=== PATIENT | male | born 1950 | race American Indian/Alaskan Native ===

== ENCOUNTER 2016-05-30 23:42 | Emergency (ER) | payer MEDICARE, MEDICAID ==
[~2016-05-30 23:42] MED LIST: Azithromycin 250 MG Tab PO ONE
[2016-05-31] MEDS ORDERED: Albuterol/Ipratropium 3.0-0.5 MG/3 ML Neb Soln ONE (00:03)
[2016-05-31] MEDS ORDERED: Albuterol 0.083% 2.5 MG/3 ML Neb Soln NEB ONE (00:06)
[2016-05-31] MEDS ORDERED: Take Home: Azithromycin 250 MG, 2 Tab Pack PO ONE (00:15)
[2016-05-31] MEDS ORDERED: Oseltamivir 75 MG Cap PO ONE (00:15)
[2016-05-31] MEDS ORDERED: Acetaminophen/HYDROcodone 325-5 MG Tab PO PRN (00:20)
[2016-05-31] MEDS ORDERED: cefTRIAXone 1 GM Vial IM ONE (00:25)
[2016-05-31] MEDS ORDERED: Albuterol 8 GM Inhaler INH PRN (00:25)
[2016-05-31] MEDS ORDERED: Acetaminophen 325 MG Tab ONE ×2 (00:28)
[2016-05-31] MEDS ORDERED: Lidocaine 1% 20 ML MDV ONE (00:28)
--- NOTE | 2016-05-31 00:35 | EDM.PDOC ---
ED HISTORY OF PRESENT ILLNESS - General Chief Complaint: Respiratory Problem Stated Complaint: "Having cold symptoms" Time Seen by Provider: 05/31/16 00:30 Source of Information: Reports: Patient History Limitations: Reports: No limitations - History of Present Illness Symptom Onset Date: 05/30/16 Timing/Duration: Reports: Hour(s): Severity: moderate Location, General: Reports: chest Quality: Reports: Ache Improves with: Reports: None Associated Symptoms (General): Reports: cough, fever/chills, shortness of breath - Related Data Allergies/ADRs: Allergies Allergy/AdvReac Type Severity Reaction Status Date / Time pentazocine lactate Allergy Intermediate Itching Verified 02/01/16 12:10 [From Jignesh] gold shots Allergy Intermediate Blisters Uncoded 02/01/16 12:10 Home Meds: Home Meds DULoxetine HCl [Cymbalta] 60 mg PO DAILY 05/19/13 [History] Folic Acid [Folic Acid] 1 mg PO DAILY 05/19/13 [History] Insulin Aspart [NovoLOG] 24 units SQ TIDMEALS 05/19/13 [History] Insulin Glarg,Human.Rec.Analog [Lantus Solostar] 80 units SQ BEDTIME 05/19/13 [ History] Lisinopril [Lisinopril] 20 mg PO BID 05/19/13 [History] Methotrexate [Methotrexate] 1 ampule IM WEEKLY 05/19/13 [History] Omeprazole [Omeprazole] 20 mg PO DAILY 05/19/13 [History] Simvastatin [Simvastatin] 20 mg PO BEDTIME 05/19/13 [History] Aspirin [García Chewable Aspirin] 81 mg PO DAILY 10/16/13 [History] Pregabalin [Lyrica] 150 mg PO TID 02/06/15 [History] metFORMIN [Glucophage] 500 mg PO BIDMEALS 02/06/15 [History] Carvedilol 12.5 mg PO BID 08/04/15 [History] Clobetasol Propionate 1 applic TOP BID PRN 08/04/15 [History] Past Medical History - Past Health History Medical/Surgical History: Denies Medical/Surgical History Cardiovascular History: Reports: Afib, Cardiomyopathy, Heart Failure, High cholesterol, Hypertension, Pacemaker, Stents Respiratory History: Reports: COPD Musculoskeletal History: Reports: RA Endocrine/Metabolic History: Reports: Diabetes, type II Dermatologic History: Reports: Psoriasis - Infectious Disease History Infectious Disease History: Reports: MRSA - Past Surgical History Cardiovascular Surgical History: Reports: AICD, Vascular surgery, Other (see below) Other Cardiovascular Surgeries/Procedures: defribillator GI Surgical History: Reports: None Neurological Surgical History: Reports: Spinal fusion Musculoskeletal Surgical History: Reports: Amputation, Shoulder surgery Other Musculoskeletal Surgeries/Procedures:: broken ankle, amputated left BKA Social & Family History - Family History Family Medical History: Noncontributory - Tobacco Use Smoking Status *Q: Current Every Day Smoker Years of Tobacco use: 48 Packs/Tins Daily: 0.5 Used Tobacco, but Quit: Yes Month Tobacco Last Used: July Second Hand Smoke Exposure: No - Alcohol Use Days Per Week of Alcohol Use: 0 - Recreational Drug Use Recreational Drug Use: No - Living Situation & Occupation Living situation: Reports: , with family Occupation: disabled ED ROS GENERAL - Review of Systems Review Of Systems: See Below Constitutional: Reports: fever, chills, weakness, fatigue HEENT: Reports: No symptoms Respiratory: Reports: Shortness of Breath, Cough Cardiovascular: Reports: No symptoms Endocrine: Reports: no symptoms GI/Abdominal: Reports: No symptoms Musculoskeletal: Reports: no symptoms Skin: Reports: no symptoms Psychiatric: Reports: No symptoms Immunologic: Reports: no symptoms ED EXAM, GENERAL - Physical Exam Exam: See Below Exam Limited By: No limitations General Appearance: alert Ears: normal external exam, normal canal Nose: normal inspection Throat/Mouth: Normal inspection Neck: normal inspection, supple Respiratory/Chest: lungs clear, decreased breath sounds, crackles, wheezing Cardiovascular: normal peripheral pulses GI/Abdominal: normal bowel sounds Extremities: normal inspection, normal range of motion Psychiatric: normal affect, normal mood Skin Exam: Rash Course - Orders/Labs/Meds Orders: Active Orders 24 hr Category Date Time Status RT Aerosol Therapy [RC] ASDIRECTED Care 05/31/16 00:07 Active RT Post Treatment Assessment [RC] Click To Edit Care 05/31/16 00:26 Ordered RT Pre-Treatment Assessment [RC] Click To Edit Care 05/31/16 00:26 Ordered Chest 2V [CR] Stat Exams 05/31/16 00:00 Ordered Acetaminophen/HYDROcodone [[place] 325-5 MG] Med 05/31/16 00:20 Ordered 1 tab PO Q4H PRN Albuterol [Ventolin HFA] Med 05/31/16 00:25 Ordered 90 gm INH Q4H PRN Medication Orders Acetaminophen/Hydrocodone Bitart ([place] 325-5 Mg) 1 tab PO Q4H PRN PRN Reason: body aches Albuterol (Ventolin Hfa) 90 gm INH Q4H PRN PRN Reason: Dyspnea Meds: Medications Generic Name Dose Route Start Last Admin Trade Name Freq PRN Reason Stop Dose Admin Acetaminophen/Hydrocodone Bitart 1 tab 05/31/16 00:20 [place] 325-5 Mg PO Q4H PRN body aches Albuterol 90 gm 05/31/16 00:25 Ventolin Hfa INH Q4H PRN Dyspnea Discontinued Medications Generic Name Dose Route Start Last Admin Trade Name Freq PRN Reason Stop Dose Admin Albuterol 2.5 mg 05/31/16 00:06 05/31/16 00:13 Proventil Neb Soln NEB 05/31/16 00:07 Not Given ONETIME ONE Albuterol/Ipratropium Confirm 05/31/16 00:03 05/31/16 00:13 Duoneb 3.0-0.5 Mg/3 Ml Administered 05/31/16 00:04 3 ml Dose Administration 3 ml .ROUTE .STK-MED ONE Azithromycin 1 packet 05/31/16 00:15 Take Home: Azithromycin 250 Mg, 2 Tab Pack PO 05/31/16 00:16 ONETIME ONE Ceftriaxone Sodium 1 gm 05/31/16 00:25 Rocephin IM 05/31/16 00:26 ONETIME ONE Oseltamivir Phosphate 75 mg 05/31/16 00:15 Tamiflu PO 05/31/16 00:16 ONETIME ONE Departure - Departure Time of Disposition: 00:33 Disposition: Home, Self-Care 01 Condition: fair Clinical Impression: Influenza A, Influenza Forms: ED Department Discharge Additional Instructions: Follow up with your regular doctor. Take your medications as ordered. Drink plenty of fluids. Keep fever under control. - My Orders Last 24 Hours: My Active Orders 05/31/16 00:00 Chest 2V [CR] Stat 05/31/16 00:07 RT Aerosol Therapy [RC] ASDIRECTED 05/31/16 00:20 Acetaminophen/HYDROcodone [[place] 325-5 MG] 1 tab PO Q4H PRN 05/31/16 00:25 Albuterol [Ventolin HFA] 90 gm INH Q4H PRN 05/31/16 00:26 RT Post Treatment Assessment [RC] Click To Edit RT Pre-Treatment Assessment [RC] Click To Edit - Assessment/Plan Last 24 Hours: My Active Orders 05/31/16 00:00 Chest 2V [CR] Stat 05/31/16 00:07 RT Aerosol Therapy [RC] ASDIRECTED 05/31/16 00:20 Acetaminophen/HYDROcodone [[place] 325-5 MG] 1 tab PO Q4H PRN 05/31/16 00:25 Albuterol [Ventolin HFA] 90 gm INH Q4H PRN 05/31/16 00:26 RT Post Treatment Assessment [RC] Click To Edit RT Pre-Treatment Assessment [RC] Click To Edit
[2016-05-31] MEDS ORDERED: Albuterol 8 GM Inhaler INH ONE (00:37)
[2016-05-31] MEDS ORDERED: Lidocaine 1% 30 ML SDV INJECT ONE (00:37)
[2016-05-31 03:29] VITALS: BP 145/88
== END 2016-05-31 01:10 | disposition home or self-care (01) ==
LOC: CC.ED 23:42
DX: J10.1 Influenza due to other identified influenza virus with other respiratory manifestations (principal); I48.91 Unspecified atrial fibrillation; I11.0 Hypertensive heart disease with heart failure; I50.9 Heart failure, unspecified; E78.00 Pure hypercholesterolemia, unspecified; J44.9 Chronic obstructive pulmonary disease, unspecified; M06.9 Rheumatoid arthritis, unspecified; E11.9 Type 2 diabetes mellitus without complications; Z98.1 Arthrodesis status; F17.210 Nicotine dependence, cigarettes, uncomplicated; Z88.8 Allergy status to other drugs, medicaments and biological substances; Z79.4 Long term (current) use of insulin; Z79.82 Long term (current) use of aspirin; Z79.899 Other long term (current) drug therapy; Z89.512 Acquired absence of left leg below knee
CPT/HCPCS: 71020; 87804; 96372; 99283; A9270; J0696

== ENCOUNTER 2016-07-05 16:01 | Emergency (ER) | payer MEDICARE, MEDICAID ==
[2016-07-05 16:07] VITALS: BP 148/89
[2016-07-05 16:58] LABS: CHLORIDE,CL 101 mEq/L (98-106); SODIUM,NA 138 mEq/L (136-145)
--- NOTE | 2016-07-05 18:04 | EDM.PDOC ---
ED HISTORY OF PRESENT ILLNESS - General Chief Complaint: Cardiovascular Problem Stated Complaint: defibrillator fired during sleep Time Seen by Provider: 07/05/16 16:37 Source of Information: Reports: Patient History Limitations: Reports: No limitations - History of Present Illness INITIAL COMMENTS - FREE TEXT/NARRATIVE: Jef is a 65 yo male who presents to the ER with concerns of his pacemaker going off in the middle of the night last night. States it went off twice, once around 1:30 in the morning and isn't sure when the second one happened. States the second one wasn't as bad as the first one. Denies any symptoms prior to it going off or currently. States he feels his normal self. No chest pain or palpitations. States he scheduled an appointment with Dr. Valles his primary today but he was told to go to the ER. He states he has had his pacemaker for 7 years or so and never remembers it going off. States he has never had it checked out as he never went back to [facility] for follow up appointments. States he was told he would need a new one soon as the battery will wear out. Timing/Duration: Reports: Resolved prior to arrival Associated Symptoms (General): Reports: no other symptoms - Related Data Allergies/ADRs: Allergies Allergy/AdvReac Type Severity Reaction Status Date / Time pentazocine lactate Allergy Intermediate Itching Verified 07/05/16 16:07 [From Jignesh] gold shots Allergy Intermediate Blisters Uncoded 07/05/16 16:07 Home Meds: Home Meds DULoxetine HCl [Cymbalta] 60 mg PO DAILY 05/19/13 [History] Folic Acid [Folic Acid] 1 mg PO DAILY 05/19/13 [History] Insulin Glarg,Human.Rec.Analog [Lantus Solostar] 80 units SQ BEDTIME 05/19/13 [ History] Lisinopril [Lisinopril] 20 mg PO BID 05/19/13 [History] Methotrexate [Methotrexate] 5 mg IM WEEKLY 05/19/13 [History] Omeprazole [Omeprazole] 20 mg PO DAILY 05/19/13 [History] Simvastatin [Simvastatin] 20 mg PO BEDTIME 05/19/13 [History] Pregabalin [Lyrica] 150 mg PO TID 02/06/15 [History] metFORMIN [Glucophage] 500 mg PO BIDMEALS 02/06/15 [History] Carvedilol 12.5 mg PO BID 08/04/15 [History] Clobetasol Propionate 1 applic TOP BID PRN 08/04/15 [History] Insulin Lispro [Humalog Kwikpen U-100] 24 units SUBCUT TID 07/05/16 [History] Pantoprazole Sodium 40 mg PO DAILY 07/05/16 [History] Triamcinolone Acetonide [Triamcinolone Acetonide 0.1% Oint] 1 applic TOP DAILY PRN 07/05/16 [History] Past Medical History - Past Health History Medical/Surgical History: Denies Medical/Surgical History Cardiovascular History: Reports: Afib, Cardiomyopathy, Heart Failure, High cholesterol, Hypertension, Pacemaker, Stents Respiratory History: Reports: COPD Musculoskeletal History: Reports: RA Endocrine/Metabolic History: Reports: Diabetes, type II Dermatologic History: Reports: Psoriasis - Infectious Disease History Infectious Disease History: Reports: MRSA - Past Surgical History Cardiovascular Surgical History: Reports: AICD, Vascular surgery, Other (see below) Other Cardiovascular Surgeries/Procedures: defribillator GI Surgical History: Reports: None Neurological Surgical History: Reports: Spinal fusion Musculoskeletal Surgical History: Reports: Amputation, Shoulder surgery Other Musculoskeletal Surgeries/Procedures:: broken ankle, amputated left BKA Social & Family History - Family History Family Medical History: Noncontributory - Tobacco Use Smoking Status *Q: Current Every Day Smoker Years of Tobacco use: 45 Packs/Tins Daily: 0.5 Used Tobacco, but Quit: Yes Month Tobacco Last Used: July Second Hand Smoke Exposure: No - Alcohol Use Days Per Week of Alcohol Use: 0 - Recreational Drug Use Recreational Drug Use: No - Living Situation & Occupation Living situation: Reports: , with family Occupation: disabled ED ROS GENERAL - Review of Systems Review Of Systems: See Below Constitutional: Denies: fever, chills HEENT: Reports: No symptoms Respiratory: Denies: Shortness of Breath, Cough Cardiovascular: Denies: Chest pain, Lightheadedness, Palpitations Endocrine: Reports: no symptoms GI/Abdominal: Reports: No symptoms : Reports: no symptoms Musculoskeletal: Reports: no symptoms Skin: Reports: no symptoms Neurological: Reports: No Symptoms. Denies: Dizziness, Headache Psychiatric: Reports: No symptoms ED EXAM, GENERAL - Physical Exam Exam: See Below Exam Limited By: No limitations General Appearance: alert, no apparent distress Ears: normal external exam, normal canal, hearing grossly normal, normal TMs Nose: normal inspection, normal mucosa, no blood Throat/Mouth: Normal inspection, Normal lips, Normal gums, Normal voice, No airway compromise Head: atraumatic, normocephalic Neck: normal inspection, supple Respiratory/Chest: no respiratory distress, lungs clear, normal breath sounds, no accessory muscle use Cardiovascular: normal peripheral pulses, regular rate, rhythm, no murmur GI/Abdominal: normal bowel sounds, soft, non tender, no organomegaly, no distention, no mass Extremities: normal inspection, normal range of motion, no pedal edema, normal capillary refill Neurological: alert, oriented, normal cognition, no motor/sensory deficits Psychiatric: normal affect, normal mood Skin Exam: Warm, Intact, Normal color, No rash Course - Vital Signs Last Recorded V/S: Last Vital Signs Temp 98.4 F 07/05/16 16:03 Pulse 85 07/05/16 16:03 Resp 20 07/05/16 16:03 BP 148/89 H 07/05/16 16:03 Pulse Ox 98 07/05/16 16:03 - Orders/Labs/Meds Orders: Active Orders 24 hr Category Date Time Status Chest 2V [CR] Stat Exams 07/05/16 16:28 Taken Labs: Laboratory Tests 07/05/16 07/05/16 07/05/16 Range/Units 16:28 16:42 16:42 WBC 9.1 (5.0-10.0) 10^3/uL RBC 4.77 (4.50-6.00) 10^6/uL Hgb 14.6 (14.0-18.0) g/dL Hct 42.7 (40.0-54.0) % MCV 89.5 (82.0-94.0) fL MCH 30.6 (27.0-32.0) pg MCHC 34.2 (33.0-38.0) g/dL RDW Coeff of Jaciel 15.3 H (11.0-15.0) % Plt Count 309 (150-400) 10^3/uL Neut % (Auto) 64.2 (35-85) % Lymph % (Auto) 23.7 (10-55) % [place] % (Auto) 9.2 (0-16) % Eos % (Auto) 2.6 (0-5) % Baso % (Auto) 0.3 (0-3) % Neut # (Auto) 5.84 (1.80-7.00) 10^3/uL Lymph # (Auto) 2.16 (1.00-4.80) 10^3/uL [place] # (Auto) 0.84 H (0.00-0.80) 10^3/uL Eos # (Auto) 0.24 (0.00-0.45) 10^3/uL Baso # (Auto) 0.03 10^3/uL PT 10.4 (9.7-12.3) SEC INR 0.96 (0.92-1.18) APTT 25.2 (24.5-30.9) SEC D-Dimer, Quantitative 0.55 H (0.00-0.50) Sodium 138 (136-145) mEq/L Potassium 4.6 (3.5-5.0) mEq/L Chloride 101 (98-106) mEq/L Carbon Dioxide 28 (21-32) mmol/L BUN 15 (7-18) mg/dL Creatinine 0.9 (0.7-1.3) mg/dL Est Cr Clr Drug Dosing 93.71 mL/min Estimated GFR (MDRD) > 60 (>=60) mL/min Glucose 174 H D (75-99) mg/dL Calcium 9.4 (8.4-10.1) mg/dL Lactate Dehydrogenase 168 (100-190) U/L Creatine Kinase 120 (35-232) U/L Troponin I < 0.017 (0.00-0.06) ng/mL Departure - Departure Time of Disposition: 18:03 Disposition: Home, Self-Care 01 Clinical Impression: Normal cardiac exam, ICD (implantable cardioverter-defibrillator) discharge Forms: ED Department Discharge Additional Instructions: 1) See Dr. Valles tomorrow or for recheck. 2) If any symptoms prior or concerns, please let us know. - Problem List & Annotations (1) ICD (implantable cardioverter-defibrillator) discharge SNOMED Code(s): 237771827 Code(s): Z45.02 - ENCNTR FOR ADJUST AND MGMT OF AUTOMATIC IMPLNTBL CARD DEFIB Status: Resolved Current Visit: Yes (2) Normal cardiac exam SNOMED Code(s): 280028373 Code(s): OHO7986 - Status: Acute Current Visit: Yes - Problem List Review Problem List Initiated/Reviewed/Updated: Yes - My Orders Last 24 Hours: My Active Orders 07/05/16 16:28 Chest 2V [CR] Stat - Assessment/Plan Last 24 Hours: My Active Orders 07/05/16 16:28 Chest 2V [CR] Stat Plan: All laboratory work, EKG, and chest x-ray were stable. No sign or acute cause identified. Patient has been completely asymptomatic in ER and will discharge home today. Recommend patient follow up with primary for referral to cardiology to establish care, since he has not been compliant with follow up appointments.
== END 2016-07-05 18:13 | disposition home or self-care (01) ==
LOC: CC.ED 16:01
DX: Z45.02 Encounter for adjustment and management of automatic implantable cardiac defibrillator (principal); I48.91 Unspecified atrial fibrillation; I50.9 Heart failure, unspecified; E78.00 Pure hypercholesterolemia, unspecified; E11.9 Type 2 diabetes mellitus without complications; J44.9 Chronic obstructive pulmonary disease, unspecified; M06.9 Rheumatoid arthritis, unspecified; Z98.890 Other specified postprocedural states; Z79.899 Other long term (current) drug therapy; Z88.8 Allergy status to other drugs, medicaments and biological substances
CPT/HCPCS: 36415; 71020; 80048; 82550; 83615; 84484; 85025; 85379; 85610; 85730; 93005; 93010; 99284

== ENCOUNTER 2016-08-14 01:38 | Emergency (ER) | payer MEDICARE, MEDICAID ==
[2016-08-14 02:02] VITALS: BP 151/83
--- NOTE | 2016-08-14 02:11 | EDM.PDOC ---
ED HPI GENERAL MEDICAL PROBLEM - General Chief Complaint: Upper Extremity Injury/Pain Stated Complaint: L)shoulder/arm pain Time Seen by Provider: 08/14/16 01:51 Source of Information: Reports: Patient - History of Present Illness INITIAL COMMENTS - FREE TEXT/NARRATIVE: Patient states he felt fine to day was up and active walking around car show, when he returned home he experienced LUE discomfort in the left shoulder radiating down to the left elbow region.He states he was concerned it was his heart although denies chest pain or diaphoresis and therefore he took a NTG SL with resolution in the discomfort. He states he thinks maybe it was just his arthritis now but presents to ER for evaluation and work up. Onset: Today Onset Date: 08/13/16 Onset Time: 23:00 Duration: Hour(s):, Improving Location: Reports: Upper Extremity, Left Quality: Reports: Ache, Other (Radiation to the left elbow region.) Improves with: Reports: Medication, Rest Worsens with: Reports: Other (Total resolution at time of examination) Associated Symptoms: Reports: No Other Symptoms, Cough (Chronic smokers cough). 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) Left Arm Pain Score (Numeric/FACES): 9 - Related Data Allergies Allergy/AdvReac Type Severity Reaction Status Date / Time pentazocine lactate Allergy Intermediate Itching Verified 08/14/16 01:47 [From Jignesh] gold shots Allergy Intermediate Blisters Uncoded 08/14/16 01:47 Home Meds: Home Meds DULoxetine HCl [Cymbalta] 60 mg PO DAILY 05/19/13 [History] Folic Acid [Folic Acid] 1 mg PO DAILY 05/19/13 [History] Insulin Glarg,Human.Rec.Analog [Lantus Solostar] 80 units SQ BEDTIME 05/19/13 [ History] Lisinopril [Lisinopril] 20 mg PO BID 05/19/13 [History] Methotrexate [Methotrexate] 5 mg IM WEEKLY 05/19/13 [History] Omeprazole [Omeprazole] 20 mg PO DAILY 05/19/13 [History] Simvastatin [Simvastatin] 20 mg PO BEDTIME 05/19/13 [History] Pregabalin [Lyrica] 150 mg PO TID 02/06/15 [History] metFORMIN [Glucophage] 500 mg PO BIDMEALS 02/06/15 [History] Carvedilol 12.5 mg PO BID 08/04/15 [History] Clobetasol Propionate 1 applic TOP BID PRN 08/04/15 [History] Insulin Lispro [Humalog Kwikpen U-100] 24 units SUBCUT TID 07/05/16 [History] Pantoprazole Sodium 40 mg PO DAILY 07/05/16 [History] Triamcinolone Acetonide [Triamcinolone Acetonide 0.1% Oint] 1 applic TOP DAILY PRN 07/05/16 [History] Past Medical History - Past Health History Medical/Surgical History: Denies Medical/Surgical History HEENT History: Reports: None Cardiovascular History: Reports: Afib, Automatic Implantable Cardioverter Defibrillators, Cardiomyopathy, Heart Failure, High Cholesterol, Hypertension, Pacemaker, Stents Respiratory History: Reports: COPD Gastrointestinal History: Reports: None Genitourinary History: Reports: None Musculoskeletal History: Reports: Arthritis, Osteoarthritis, RA Neurological History: Reports: None Psychiatric History: Reports: None Endocrine/Metabolic History: Reports: Diabetes, Type II Hematologic History: Reports: None Immunologic History: Reports: Immunosuppression (Methotrexate for psoriasis- folic acid) Oncologic (Cancer) History: Reports: None Dermatologic History: Reports: Psoriasis - Infectious Disease History Infectious Disease History: Reports: None, MRSA - Past Surgical History Cardiovascular Surgical History: Reports: AICD, Vascular Surgery, Other (See Below) GI Surgical History: Reports: None Endocrine Surgical History: Reports: Other (See Below) Neurological Surgical History: Reports: Spinal Fusion Musculoskeletal Surgical History: Reports: Amputation, Shoulder Surgery Social & Family History - Family History Family Medical History: Noncontributory - Tobacco Use Smoking Status *Q: Never Smoker Years of Tobacco use: 45 Packs/Tins Daily: 0.5 Used Tobacco, but Quit: Yes Month Tobacco Last Used: July Second Hand Smoke Exposure: No - Tobacco Core Measures Tobacco Use/Smoking Within Last 30 Days: Yes Smoking Frequency Within Last 30 Days: Reports: Five or More Cigarettes Per Day Desires Tobacco Cessation Medication: Refuses FDA Approved Med - Caffeine Use Caffeine Use: Reports: Coffee - Alcohol Use Alcohol Use History: Yes Days Per Week of Alcohol Use: 0 - Recreational Drug Use Recreational Drug Use: No - Living Situation & Occupation Living situation: Reports: , with Family Occupation: Disabled Review of Systems - Review of Systems Review Of Systems: See Below Constitutional: Reports: No Symptoms Eyes: Reports: No Symptoms Ears: Reports: No Symptoms Nose: Reports: No Symptoms Mouth/Throat: Reports: No Symptoms Respiratory: Reports: No Symptoms Cardiovascular: Reports: No Symptoms. Denies: Chest Pain, Edema, Irregular Heart Rate, Lightheadedness, Palpitations, Syncope GI/Abdominal: Reports: No Symptoms Genitourinary: Reports: No Symptoms Musculoskeletal: Reports: Shoulder Pain, Arm Pain, Muscle Pain. Denies: Joint Swelling Skin: Reports: Lesions (Plaques from psoriasis) Neurological: Reports: No Symptoms Psychiatric: Reports: No Symptoms ED EXAM, GENERAL - Physical Exam Exam: See Below Exam Limited By: No Limitations General Appearance: Alert, WD/WN, No Apparent Distress Eye Exam: Bilateral Eye: EOMI, Normal Fundi, Normal Inspection, Other (No icterus) Ears: Normal External Exam, Normal Canal, Hearing Grossly Normal, Normal TMs Ear Exam: Bilateral Ear: Auricle Normal, Canal Normal, TM normal Nose: Normal Inspection, Normal Mucosa, No Blood Throat/Mouth: Normal Inspection, Normal Lips, Normal Oropharynx, Normal Voice, No Airway Compromise (Caries) Head: Atraumatic, Normocephalic Neck: Normal Inspection, Supple, Non-Tender, Full Range of Motion Respiratory/Chest: No Respiratory Distress, No Accessory Muscle Use, Chest Non- Tender, Decreased Breath Sounds, Wheezing. No: Accessory Muscle Use Cardiovascular: Normal Peripheral Pulses, Regular Rate, Rhythm, No Edema, No Gallop, No JVD, No Murmur, No Rub Peripheral Pulses: 2+: Carotid (L), Carotid (R), Radial (L), Radial (R), Dorsalis Pedis (L), Dorsalis Pedis (R) GI/Abdominal: Soft, Non-Tender (Male) Exam: Deferred Rectal (Males) Exam: Deferred Back Exam: Normal Inspection, Full Range of Motion Extremities: Normal Inspection, Normal Range of Motion, Normal Capillary Refill , Arm Pain. No: Joint Swelling, Increased Warmth (Resolved-Equal strength bilaterally-Neurovascular intact.), Pallor, Redness Neurological: Alert, Oriented, CN II-XII Intact, Normal Cognition, Normal Reflexes, No Motor/Sensory Deficits Psychiatric: Normal Affect, Normal Mood Skin Exam: Warm, Dry, Normal Color, Rash, Other (Plaques across abdomen secondary psoriasis) Lymphatic: No Adenopathy EKG INTERPRETATION EKG Date: 08/14/16 Rhythm: NSR P-wave: present QRS: LBBB ST-T: normal QT: normal Comparison: other: (EKG -NSR LBBB) Course - Vital Signs Last Recorded V/S: Last Vital Signs Temp 36.8 C 08/14/16 01:40 Pulse 90 08/14/16 01:58 Resp 20 08/14/16 01:58 BP 151/83 H 08/14/16 01:58 Pulse Ox 97 08/14/16 01:58 - Orders/Labs/Meds Orders: Active Orders 24 hr Category Date Time Status EKG Documentation Completion [RC] STAT Care 08/14/16 01:41 Active Chest 2V [CR] Stat Exams 08/14/16 01:41 Taken Labs: Laboratory Tests 08/14/16 08/14/16 08/14/16 Range/Units 01:41 01:41 01:55 WBC 11.3 H (5.0-10.0) 10^3/uL RBC 4.54 (4.50-6.00) 10^6/uL Hgb 14.2 (14.0-18.0) g/dL Hct 42.2 (40.0-54.0) % MCV 93.0 (82.0-94.0) fL MCH 31.3 (27.0-32.0) pg MCHC 33.6 (33.0-38.0) g/dL RDW Coeff of Jaciel 14.7 (11.0-15.0) % Plt Count 314 (150-400) 10^3/uL Neut % (Auto) 68.0 (35-85) % Lymph % (Auto) 20.8 (10-55) % [place] % (Auto) 8.4 (0-16) % Eos % (Auto) 2.4 (0-5) % Baso % (Auto) 0.4 (0-3) % Neut # (Auto) 7.71 H (1.80-7.00) 10^3/uL Lymph # (Auto) 2.36 (1.00-4.80) 10^3/uL [place] # (Auto) 0.95 H (0.00-0.80) 10^3/uL Eos # (Auto) 0.27 (0.00-0.45) 10^3/uL Baso # (Auto) 0.04 10^3/uL PT 10.4 (9.7-12.3) SEC INR 0.96 (0.92-1.18) APTT 25.0 (24.5-30.9) SEC Sodium 138 (136-145) mEq/L Potassium 4.4 (3.5-5.0) mEq/L Chloride 101 (98-106) mEq/L Carbon Dioxide 24 (21-32) mmol/L BUN 18 (7-18) mg/dL Creatinine 1.1 (0.7-1.3) mg/dL Est Cr Clr Drug Dosing TNP Estimated GFR (MDRD) > 60 (>=60) mL/min Glucose 266 H D (75-99) mg/dL Calcium 8.9 (8.4-10.1) mg/dL Lactate Dehydrogenase 235 H (100-190) U/L Creatine Kinase 118 (35-232) U/L Troponin I < 0.017 (0.00-0.06) ng/mL Departure - Departure Time of Disposition: 02:33 Disposition: Home, Self-Care 01 Condition: fair Clinical Impression: Shoulder pain, left, Normal cardiac exam, Arthritis - Discharge Information Forms: ED Department Discharge Additional Instructions: Discussed withpatient cardiac work up is negative for acute changes. Advised to rest at home. Utilize OTC Ibuprofen as needed if pain returns. Continue current treatment plan from PCP. Reassurance and 911 for transfer if chest pain, diaphoresis, pressure etc. Patient verbalizes understanding. Take Home sheets reviewed. MLP Sign Off - Signature Requirements MLP Sign Off: No - Problem List & Annotations (1) Shoulder pain, left SNOMED Code(s): 43286922, 80214582 Code(s): M25.512 - PAIN IN LEFT SHOULDER Status: Acute Current Visit: Yes (2) Arthritis SNOMED Code(s): 8415674, 901992607 Code(s): M19.90 - UNSPECIFIED OSTEOARTHRITIS, UNSPECIFIED SITE Status: Acute Current Visit: Yes - My Orders Last 24 Hours: My Active Orders 08/14/16 01:41 EKG Documentation Completion [RC] STAT Chest 2V [CR] Stat - Assessment/Plan Last 24 Hours: My Active Orders 08/14/16 01:41 EKG Documentation Completion [RC] STAT Chest 2V [CR] Stat Assessment:: Cardiac Work-Up Negative- Psoriatic Arthritis- Left Shoulder Pain-resolved NIDDM RA Cardiomyopathy Plan: Discussed withpatient cardiac work up is negative for acute changes. Advised to rest at home. Utilize OTC Ibuprofen as needed if pain returns. Continue current treatment plan from PCP. Reassurance and 911 for transfer if chest pain, diaphoresis, pressure etc. Patient verbalizes understanding. Take Home sheets reviewed.
[2016-08-14 02:23] LABS: CHLORIDE,CL 101 mEq/L (98-106); SODIUM,NA 138 mEq/L (136-145)
== END 2016-08-14 03:30 | disposition home or self-care (01) ==
LOC: CC.ED 01:38
DX: M25.512 Pain in left shoulder (principal); M19.90 Unspecified osteoarthritis, unspecified site; I48.91 Unspecified atrial fibrillation; I11.0 Hypertensive heart disease with heart failure; E78.00 Pure hypercholesterolemia, unspecified; J44.9 Chronic obstructive pulmonary disease, unspecified; E11.9 Type 2 diabetes mellitus without complications; L40.9 Psoriasis, unspecified; M06.9 Rheumatoid arthritis, unspecified; I50.9 Heart failure, unspecified; Z88.8 Allergy status to other drugs, medicaments and biological substances; Z79.899 Other long term (current) drug therapy; Z79.4 Long term (current) use of insulin; Z79.84 Long term (current) use of oral hypoglycemic drugs
CPT/HCPCS: 36415; 71020; 80048; 82550; 83615; 84484; 85025; 85610; 85730; 93005; 93010; 99284

== ENCOUNTER 2017-10-30 20:42 | Inpatient (IN) | payer MEDICARE, MEDICAID, OTHER ==
--- NOTE | 2017-10-30 20:55 | EDM.PDOC ---
ED HPI GENERAL MEDICAL PROBLEM - General Chief Complaint: Genitourinary Problem Stated Complaint: FREQUENT URINATION WITH PAIN Time Seen by Provider: 10/30/17 20:55 Source of Information: Reports: Patient - History of Present Illness INITIAL COMMENTS - FREE TEXT/NARRATIVE: eJf is a 67 year old male, with PMH significant for type II DM on half-way insulin, atrial fibrillation, CAD, rheumatoid arthritis, hypertension, hyperlipidemia, cardomyopathy, implantable AICD, pacemaker, who presents to the clinic with c/o frequent urination and dysuria. He reports starting yesterday he noticed he was going to the bathroom more frequently and only little amounts at a time. He reports he "can't control his bladder." He reports he "feels terrible." Reports he had a "high fever" last night, but did not check it. He reports fever and chills today. Does have some right flank pain, however he reports he has chronic back pain so difficult to tell. Denies any abdominal pain , N/V/D, chest pain, shortness of breath, hematuria. Denies any history of kidney stones or prostate issues. Onset Date: 10/29/17 Duration: Getting Worse Associated Symptoms: Reports: Fever/Chills, Loss of Appetite, Weakness. 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 Penis Pain Score (Numeric/FACES): 7 - Related Data Allergies Allergy/AdvReac Type Severity Reaction Status Date / Time pentazocine lactate Allergy Intermediate Itching Verified 10/30/17 21:13 [From Jignesh] gold shots Allergy Intermediate Blisters Uncoded 10/30/17 21:13 Home Meds: Home Meds DULoxetine HCl [Cymbalta] 60 mg PO DAILY 05/19/13 [History] Folic Acid 1 mg PO DAILY 05/19/13 [History] Insulin Glarg,Human.Rec.Analog [Lantus Solostar] 80 units SQ BEDTIME 05/19/13 [ History] Lisinopril 20 mg PO BID 05/19/13 [History] Methotrexate 5 mg IM WEEKLY 05/19/13 [History] Simvastatin 20 mg PO BEDTIME 05/19/13 [History] Pregabalin [Lyrica] 150 mg PO TID 02/06/15 [History] metFORMIN [Glucophage] 500 mg PO BIDMEALS 02/06/15 [History] Carvedilol 12.5 mg PO BID 08/04/15 [History] Clobetasol Propionate 1 applic TOP BID PRN 08/04/15 [History] Pantoprazole Sodium 40 mg PO DAILY 07/05/16 [History] Triamcinolone Acetonide [Triamcinolone Acetonide 0.1% Oint] 1 applic TOP DAILY PRN 07/05/16 [History] Insulin Aspart [NovoLOG] 28 units SUBCUT TIDMEALS 10/30/17 [History] Past Medical History - Past Health History Medical/Surgical History: Denies Medical/Surgical History HEENT History: Reports: Other (See Below) Other HEENT History: sore throat and headache Cardiovascular History: Reports: Afib, Automatic Implantable Cardioverter Defibrillators, Cardiomyopathy, Heart Failure, High Cholesterol, Hypertension, Pacemaker, Stents Respiratory History: Reports: COPD Gastrointestinal History: Reports: GERD Genitourinary History: Reports: None Musculoskeletal History: Reports: Amputation, Arthritis, Osteoarthritis, RA Other Musculoskeletal History: broken ankle Neurological History: Reports: None Psychiatric History: Reports: None Endocrine/Metabolic History: Reports: Diabetes, Type II Hematologic History: Reports: None Immunologic History: Reports: Immunosuppression Oncologic (Cancer) History: Reports: None Dermatologic History: Reports: Psoriasis - Infectious Disease History Infectious Disease History: Reports: MRSA - Past Surgical History Cardiovascular Surgical History: Reports: AICD, Vascular Surgery, Other (See Below) Other Cardiovascular Surgeries/Procedures: stent in left leg GI Surgical History: Reports: None Neurological Surgical History: Reports: Spinal Fusion Musculoskeletal Surgical History: Reports: Amputation, Shoulder Surgery Social & Family History - Family History Family Medical History: Noncontributory - Caffeine Use Caffeine Use: Reports: Coffee - Living Situation & Occupation Living situation: Reports: , with Family Occupation: Disabled ED ROS GENERAL - Review of Systems Review Of Systems: See Below Constitutional: Reports: Fever, Chills, Weakness, Fatigue, Decreased Appetite HEENT: Reports: Rhinitis Respiratory: Reports: Cough (baseline, chronic cough). Denies: Shortness of Breath, Pleuritic Chest Pain, Sputum Cardiovascular: Reports: Dyspnea on Exertion. Denies: Chest Pain, Edema, Lightheadedness, Syncope Endocrine: Reports: Fatigue GI/Abdominal: Reports: Decreased Appetite. Denies: Abdominal Pain, Black Stool , Bloody Stool, Constipation, Diarrhea, Nausea, Vomiting : Reports: Dysuria, Flank Pain, Frequency, Incontinence, Urgency. Denies: Hematuria Musculoskeletal: Reports: Neck Pain, Shoulder Pain, Arm Pain, Back Pain Skin: Reports: No Symptoms Neurological: Reports: Weakness. Denies: Confusion, Dizziness, Headache, Numbness, Tingling Psychiatric: Reports: No Symptoms Hematologic/Lymphatic: Reports: No Symptoms Immunologic: Reports: No Symptoms ED EXAM, RENAL/ - Physical Exam Exam: See Below Exam Limited By: No Limitations General Appearance: Alert, WD/WN, Mild Distress Eye Exam: Bilateral Eye: EOMI, PERRL Head: Atraumatic, Normocephalic Neck: Normal Inspection, Supple, Non-Tender, Full Range of Motion Respiratory/Chest: No Respiratory Distress, Lungs Clear, Normal Breath Sounds, No Accessory Muscle Use, Chest Non-Tender, Decreased Breath Sounds Cardiovascular: Normal Peripheral Pulses, Regular Rate, Rhythm, No Murmur, Tachycardia GI/Abdominal: Normal Bowel Sounds, Soft, Tender (RLQ & RUQ). No: Guarding, Rigid, Rebound Back Exam: Normal Inspection, Full Range of Motion, CVA Tenderness (R). No: CVA Tenderness (L) Extremities: Normal Inspection, Normal Range of Motion, Non-Tender, Normal Capillary Refill, No Pedal Edema Neurological: Alert, Oriented, CN II-XII Intact, Normal Cognition, Normal Gait, Normal Reflexes, No Motor/Sensory Deficits Psychiatric: Anxious Skin Exam: Warm, Dry, Intact, Normal Color, No Rash Lymphatic: No Adenopathy Course - Vital Signs Last Recorded V/S: Last Vital Signs Temp 96.4 F 10/31/17 07:28 Pulse 96 10/31/17 07:28 Resp 16 10/31/17 07:28 BP 124/77 10/31/17 07:28 Pulse Ox 97 10/31/17 07:28 - Orders/Labs/Meds Orders: Active Orders 24 hr Category Date Time Status Patient Status [ADT] Routine ADT 10/30/17 22:49 Active Cardiac Monitoring [RC] 0800,2000 Care 10/30/17 22:49 Active Oxygen Therapy [RC] .PRN Care 10/30/17 22:49 Active Up With Assistance [RC] .PRN Care 10/30/17 22:49 Active Vital Signs [RC] 0000,0400,0800,1200,1600,2000 Care 10/30/17 22:49 Active Consistent Carbohydrate Diet [DIET] Diet 10/30/17 Breakfast Active BASIC METABOLIC PANEL,BMP [CHEM] DAILY Lab 10/31/17 06:00 Ordered BASIC METABOLIC PANEL,BMP [CHEM] DAILY Lab 11/01/17 06:00 Ordered BASIC METABOLIC PANEL,BMP [CHEM] DAILY Lab 11/02/17 06:00 Ordered C-REACTIVE PROTEIN [CHEM] DAILY Lab 10/31/17 06:00 Ordered C-REACTIVE PROTEIN [CHEM] DAILY Lab 11/01/17 06:00 Ordered C-REACTIVE PROTEIN [CHEM] DAILY Lab 11/02/17 06:00 Ordered CBC WITH AUTO DIFF [HEME] DAILY Lab 10/31/17 06:00 Ordered CBC WITH AUTO DIFF [HEME] DAILY Lab 11/01/17 06:00 Ordered CBC WITH AUTO DIFF [HEME] DAILY Lab 11/02/17 06:00 Ordered CULTURE BLOOD [BC] Stat Lab 10/30/17 21:20 Received CULTURE BLOOD [BC] Stat Lab 10/30/17 21:30 Received Acetaminophen [Tylenol] Med 10/30/17 22:49 Active 650 mg PO Q4H PRN Enoxaparin [Lovenox] Med 10/30/17 22:00 Active 40 mg SUBCUT Q24H Ibuprofen [Motrin] Med 10/30/17 22:49 Active 600 mg PO Q6H PRN Magnesium Hydroxide [Milk of Magnesia] Med 10/30/17 22:49 Active 30 ml PO Q12H PRN Temazepam [Restoril] Med 10/30/17 22:49 Active 15 mg PO BEDTIME PRN Resuscitation Status Routine Resus Stat 10/30/17 21:47 Ordered Medication Orders Acetaminophen (Tylenol) 650 mg PO Q4H PRN PRN Reason: Pain (Mild 1-3)/fever Carvedilol (Coreg) 12.5 mg PO BID [facility] Ceftriaxone Sodium (Rocephin) 1 gm IVPUSH Q24H [facility] Last Admin: 10/30/17 23:30 Dose: 1 gm Duloxetine HCl (Cymbalta) 60 mg PO DAILY [facility] Enoxaparin Sodium (Lovenox) 40 mg SUBCUT Q24H [facility] Last Admin: 08/20/18 23:27 Dose: 40 mg Folic Acid (Folic Acid) 1 mg PO DAILY [facility] Sodium Chloride (Normal Saline) 1,000 mls @ 125 mls/hr IV ASDIRECTED JEZ Last Admin: 10/31/17 00:00 Dose: 125 mls/hr Ibuprofen (Motrin) 600 mg PO Q6H PRN PRN Reason: Pain (mild 1-3) Last Admin: 10/30/17 23:27 Dose: 600 mg Insulin Aspart (Novolog) 28 unit SUBCUT TIDMEALS [facility] Insulin Glargine (Lantus Solostar) 80 units SUBCUT BEDTIME JEZ Lisinopril (Prinivil) 20 mg PO BID JEZ Magnesium Hydroxide (Milk Of Magnesia) 30 ml PO Q12H PRN PRN Reason: Constipation Non-Formulary Medication (Clobetasol Propionate [Clobetasol Propionate]) 1 applic TOP BID PRN PRN Reason: SCALP Pantoprazole Sodium (Protonix) 40 mg PO DAILY JEZ Pregabalin (Lyrica) 150 mg PO TID JEZ Simvastatin (Zocor) 20 mg PO BEDTIME JEZ Temazepam (Restoril) 15 mg PO BEDTIME PRN PRN Reason: Sleep Triamcinolone Acetonide (Triamcinolone Acetonide 0.1% Oint) 0 gm TOP DAILY PRN PRN Reason: skin Labs: Laboratory Tests 10/30/17 10/30/17 10/30/17 Range/Units 20:50 21:00 21:00 WBC 29.3 H* (5.0-10.0) 10^3/uL RBC 4.84 (4.50-6.00) 10^6/uL Hgb 14.9 (14.0-18.0) g/dL Hct 43.7 (40.0-54.0) % MCV 90.3 (82.0-94.0) fL MCH 30.8 (27.0-32.0) pg MCHC 34.1 (33.0-38.0) g/dL RDW Coeff of Jaciel 15.2 H (11.0-15.0) % Plt Count 243 (150-400) 10^3/uL Add Manual Diff Yes Neutrophils % (Manual) 93 H (35-85) % Band Neutrophils % 1 (0-5) % Lymphocytes % (Manual) 4 L (21-55) % Monocytes % (Manual) 2 (2-12) % Absolute Neutrophils 27.54 H (1.80-7.00) 10^3/uL Lymphocytes # (Manual) 1.17 (1.00-4.80) 10^3/uL Monocytes # (Manual) 0.59 (0.00-0.80) 10^3/uL Sodium 130 L (136-145) mEq/L Potassium 3.9 (3.5-5.0) mEq/L Chloride 98 (98-106) mEq/L Carbon Dioxide 24 (21-32) mmol/L BUN 17 (7-18) mg/dL Creatinine 1.1 (0.7-1.3) mg/dL Est Cr Clr Drug Dosing 74.65 mL/min Estimated GFR (MDRD) > 60 (>=60) mL/min Glucose 251 H (75-99) mg/dL Calcium 8.9 (8.4-10.1) mg/dL C-Reactive Protein 23.1 H (0.2-0.8) mg/dL Urine Color Yellow (YELLOW) Urine Appearance Cloudy (CLEAR) Urine pH 7.0 (4.5-8.0) Ur Specific Roslyn 1.020 (1.003-1.020) Urine Protein 100 H (NEGATIVE) mg/dL Urine Glucose (UA) 500 H (NEGATIVE) mg/dL Urine Ketones Negative (NEGATIVE) mg/dL Urine Occult Blood Small H (NEGATIVE) Urine Nitrite Negative (NEGATIVE) Urine Bilirubin Negative (NEGATIVE) Urine Urobilinogen >=8.0 H (0.2-1.0) EU/dL Ur Leukocyte Esterase Small H (NEGATIVE) Urine RBC 0-5 (0-5) /HPF Urine WBC 40-50 H (0-5) /HPF Urine Bacteria Few H (NOT SEEN) /HPF Meds: Medications Generic Name Dose Route Start Last Admin Trade Name Freq PRN Reason Stop Dose Admin Acetaminophen 650 mg 10/30/17 22:49 Tylenol PO Q4H PRN Pain (Mild 1-3)/fever Carvedilol 12.5 mg 10/31/17 08:00 Coreg PO BID JEZ Ceftriaxone Sodium 1 gm 10/30/17 22:00 10/30/17 23:30 Rocephin IVPUSH 1 gm Q24H JEZ Administration Duloxetine HCl 60 mg 10/31/17 08:00 Cymbalta PO DAILY [facility] Enoxaparin Sodium 40 mg 10/30/17 22:00 10/30/17 23:27 Lovenox SUBCUT 40 mg Q24H JEZ Administration Folic Acid 1 mg 10/31/17 08:00 Folic Acid PO DAILY [facility] Sodium Chloride 1,000 mls @ 125 mls/hr 10/30/17 22:49 10/31/17 00:00 Normal Saline IV 125 mls/hr ASDIRECTED JEZ Administration Ibuprofen 600 mg 10/30/17 22:49 10/30/17 23:27 Motrin PO 600 mg Q6H PRN Administration Pain (mild 1-3) Insulin Aspart 28 unit 10/31/17 08:00 Novolog SUBCUT TIDMEALS [facility] Insulin Glargine 80 units 10/31/17 20:00 Lantus Solostar SUBCUT BEDTIME [facility] Lisinopril 20 mg 10/31/17 08:00 Prinivil PO BID [facility] Magnesium Hydroxide 30 ml 10/30/17 22:49 Milk Of Magnesia PO Q12H PRN Constipation Non-Formulary Medication 1 applic 10/30/17 22:49 Clobetasol Propionate [Clobetasol Propionate] TOP BID PRN SCALP Pantoprazole Sodium 40 mg 10/31/17 08:00 Protonix PO DAILY [facility] Pregabalin 150 mg 10/31/17 08:00 Lyrica PO TID [facility] Simvastatin 20 mg 10/31/17 20:00 Zocor PO BEDTIME [facility] Temazepam 15 mg 10/30/17 22:49 Restoril PO BEDTIME PRN Sleep Triamcinolone Acetonide 0 gm 10/30/17 22:49 Triamcinolone Acetonide 0.1% Oint TOP DAILY PRN skin Discontinued Medications Generic Name Dose Route Start Last Admin Trade Name Freq PRN Reason Stop Dose Admin Acetaminophen 650 mg 10/30/17 21:26 10/30/17 21:28 Tylenol PO 10/30/17 21:27 650 mg NOW ONE Administration Sodium Chloride 500 mls @ 999 mls/hr 10/30/17 22:49 10/30/17 23:26 Normal Saline IV 10/30/17 23:19 999 mls/hr ONETIME ONE Administration Iopamidol 100 ml 10/31/17 07:55 10/31/17 07:59 Isovue-300 (61%) IVPUSH 10/31/17 07:56 100 ml ONETIME ONE Administration Departure - Departure Time of Disposition: 21:40 Disposition: Admitted As Inpatient 67 Condition: Fair Clinical Impression: UTI, Urinary tract infectious disease, Leukocytosis - Discharge Information *PRESCRIPTION DRUG MONITORING PROGRAM REVIEWED*: Not Applicable *COPY OF PRESCRIPTION DRUG MONITORING REPORT IN PATIENT SEGUNDO: Not Applicable - Problem List & Annotations (1) UTI (urinary tract infection) SNOMED Code(s): 94164187 Code(s): N39.0 - URINARY TRACT INFECTION, SITE NOT SPECIFIED Status: Acute Current Visit: Yes (2) Leukocytosis SNOMED Code(s): 294367612, 858438893 Code(s): D72.829 - ELEVATED WHITE BLOOD CELL COUNT, UNSPECIFIED Status: Acute Current Visit: Yes Qualifiers: Leukocytosis type: unspecified Qualified Code(s): D72.829 - Elevated white blood cell count, unspecified - Problem List Review Problem List Initiated/Reviewed/Updated: Yes - My Orders Last 24 Hours: My Active Orders 10/30/17 21:20 CULTURE BLOOD [BC] Stat 10/30/17 21:30 CULTURE BLOOD [BC] Stat 10/30/17 21:47 Resuscitation Status Routine 10/30/17 22:00 Enoxaparin [Lovenox] 40 mg SUBCUT Q24H 10/30/17 22:49 Patient Status [ADT] Routine Cardiac Monitoring [RC] 0800,2000 Oxygen Therapy [RC] .PRN Up With Assistance [RC] .PRN Vital Signs [RC] 0000,0400,0800,1200,1600,2000 Acetaminophen [Tylenol] 650 mg PO Q4H PRN Ibuprofen [Motrin] 600 mg PO Q6H PRN Magnesium Hydroxide [Milk of Magnesia] 30 ml PO Q12H PRN Temazepam [Restoril] 15 mg PO BEDTIME PRN 10/30/17 Breakfast Consistent Carbohydrate Diet [DIET] 10/31/17 06:00 BASIC METABOLIC PANEL,BMP [CHEM] DAILY C-REACTIVE PROTEIN [CHEM] DAILY CBC WITH AUTO DIFF [HEME] DAILY 11/01/17 06:00 BASIC METABOLIC PANEL,BMP [CHEM] DAILY C-REACTIVE PROTEIN [CHEM] DAILY CBC WITH AUTO DIFF [HEME] DAILY 11/02/17 06:00 BASIC METABOLIC PANEL,BMP [CHEM] DAILY C-REACTIVE PROTEIN [CHEM] DAILY CBC WITH AUTO DIFF [HEME] DAILY - Assessment/Plan Admission H&P: Please use this note as an admission H&P Last 24 Hours: My Active Orders 10/30/17 21:20 CULTURE BLOOD [BC] Stat 10/30/17 21:30 CULTURE BLOOD [BC] Stat 10/30/17 21:47 Resuscitation Status Routine 10/30/17 22:00 Enoxaparin [Lovenox] 40 mg SUBCUT Q24H 10/30/17 22:49 Patient Status [ADT] Routine Cardiac Monitoring [RC] 0800,1999 Oxygen Therapy [RC] .PRN Up With Assistance [RC] .PRN Vital Signs [RC] 0000,0400,0800,1200,1600,2000 Acetaminophen [Tylenol] 650 mg PO Q4H PRN Ibuprofen [Motrin] 600 mg PO Q6H PRN Magnesium Hydroxide [Milk of Magnesia] 30 ml PO Q12H PRN Temazepam [Restoril] 15 mg PO BEDTIME PRN 10/30/17 Breakfast Consistent Carbohydrate Diet [DIET] 10/31/17 06:00 BASIC METABOLIC PANEL,BMP [CHEM] DAILY C-REACTIVE PROTEIN [CHEM] DAILY CBC WITH AUTO DIFF [HEME] DAILY 11/01/17 06:00 BASIC METABOLIC PANEL,BMP [CHEM] DAILY C-REACTIVE PROTEIN [CHEM] DAILY CBC WITH AUTO DIFF [HEME] DAILY 11/02/17 06:00 BASIC METABOLIC PANEL,BMP [CHEM] DAILY C-REACTIVE PROTEIN [CHEM] DAILY CBC WITH AUTO DIFF [HEME] DAILY Plan: Admit acute with telemetry to Dr. Mathew. Will get CT chest/abdomen/pelvis in am. Oral contrast prep starting this evening. Hold Metformin for 48 hours after contrast. Start IV Rocephin while awaiting culture reports Bolus 500 mL IV NS due to potential sepsis/tachycardia then NS @ 125 mL/hr. Monitor closely for s/s of fluid overload. Close monitoring of VS throughout night. Discussed lab results with patient and , who were agreeable to plan. Patient transferred to floor in satisfactory condition.
[2017-10-30 21:16] LABS: CHLORIDE,CL 98 mEq/L (98-106); SODIUM,NA 130 mEq/L (136-145)
[2017-10-30] MEDS ORDERED: Acetaminophen 325 MG Tab PO ONE (21:26)
[2017-10-30] MEDS ORDERED: Sodium Chloride 0.9% 500 ML IV ONE (22:49)
[2017-10-30] MEDS ORDERED: Acetaminophen 325 MG Tab PO PRN (22:49)
[2017-10-30] MEDS ORDERED: Triamcinolone Acetonide 0.1% Oint 15 GM Tube TOP PRN (22:49)
[2017-10-30] MEDS ORDERED: CLOBETASOL PROPIONATE TOP PRN (22:49)
[2017-10-30] MEDS ORDERED: Magnesium Hydroxide 400 MG/5 ML Susp 30 ML Cup PO PRN (22:49)
[2017-10-30] MEDS ORDERED: Temazepam 15 MG Cap PO PRN (22:49)
[2017-10-30] MEDS: Enoxaparin 40 MG/0.4 ML Syringe SUBCUT SCH (23:27)
[2017-10-30] MEDS: Ibuprofen 200 MG Tab PO PRN (23:27)
[2017-10-30] MEDS: cefTRIAXone 1 GM Vial IVPUSH SCH (23:30)
[2017-10-31] MEDS ORDERED: Iopamidol 612 MG/ML 100 ML Bottle IVPUSH ONE (07:55)
[2017-10-31] MEDS: DULoxetine 30 MG Cap PO SCH (08:07)
[2017-10-31] MEDS: Carvedilol 12.5 MG Tab PO SCH ×2 (08:07→19:44)
[2017-10-31] MEDS: Pregabalin 50 MG Cap PO SCH ×3 (08:08→19:44)
[2017-10-31] MEDS: Folic Acid 1 MG Tab PO SCH (08:08)
[2017-10-31] MEDS: Lisinopril 20 MG Tab PO SCH ×2 (08:08→19:45)
[2017-10-31] MEDS: Pantoprazole 40 MG Tab.CR PO SCH (08:09)
[2017-10-31] MEDS: Sodium Chloride 0.9% 1,000 ML IV SCH ×3 (08:09→16:52)
[2017-10-31] MEDS: Insulin Aspart 100 Units/ML 3 ML Pen SUBCUT SCH ×3 (08:42→17:33)
[2017-10-31 08:46] LABS: CHLORIDE,CL 101 mEq/L (98-106); SODIUM,NA 133 mEq/L (136-145)
[2017-10-31] MEDS: Simvastatin 20 MG Tab PO SCH (19:44)
[2017-10-31] MEDS ORDERED: Insulin Glargine,Human Rec. Analog 100 Units/ML 3 ML Pen SUBCUT SCH (20:00)
[2017-10-31] MEDS: Insulin Detemir 100 Units/ML 3 ML Pen SUBCUT SCH (20:06)
--- NOTE | 2017-10-31 20:30 | PCM.PN ---
- General Info Date of Service: 10/31/17 Functional Status: Reports: Pain Controlled, Tolerating Diet - Review of Systems General: Reports: Weakness. Denies: Fever, Fatigue, Malaise, Chills HEENT: Reports: No Symptoms Pulmonary: Denies: Shortness of Breath Cardiovascular: Denies: Chest Pain, Palpitations Gastrointestinal: Reports: Abdominal Pain. Denies: Nausea, Vomiting Genitourinary: Reports: Flank Pain Skin: Reports: No Symptoms Neurological: Reports: Weakness - Patient Data Vitals - Most Recent: Last Vital Signs Temp 99 F 10/31/17 19:50 Pulse 113 H 10/31/17 19:50 Resp 18 10/31/17 19:50 BP 119/64 10/31/17 19:50 Pulse Ox 95 10/31/17 19:50 Weight - Most Recent: 213 lb I&O - Last 24 Hours: Intake & Output 10/31/17 10/31/17 10/31/17 06:59 14:59 22:59 Intake Total 1000 1000 Balance 1000 1000 Lab Results Last 24 Hours: Laboratory Results - last 24 hr 10/30/17 10/30/17 10/30/17 Range/Units 20:50 21:00 21:00 WBC 29.3 H* (5.0-10.0) 10^3/uL RBC 4.84 (4.50-6.00) 10^6/uL Hgb 14.9 (14.0-18.0) g/dL Hct 43.7 (40.0-54.0) % MCV 90.3 (82.0-94.0) fL MCH 30.8 (27.0-32.0) pg MCHC 34.1 (33.0-38.0) g/dL RDW Coeff of Jaciel 15.2 H (11.0-15.0) % Plt Count 243 (150-400) 10^3/uL Add Manual Diff Yes Neutrophils % (Manual) 93 H (35-85) % Band Neutrophils % 1 (0-5) % Lymphocytes % (Manual) 4 L (21-55) % Monocytes % (Manual) 2 (2-12) % Absolute Neutrophils 27.54 H (1.80-7.00) 10^3/uL Lymphocytes # (Manual) 1.17 (1.00-4.80) 10^3/uL Monocytes # (Manual) 0.59 (0.00-0.80) 10^3/uL Sodium 130 L (136-145) mEq/L Potassium 3.9 (3.5-5.0) mEq/L Chloride 98 (98-106) mEq/L Carbon Dioxide 24 (21-32) mmol/L BUN 17 (7-18) mg/dL Creatinine 1.1 (0.7-1.3) mg/dL Est Cr Clr Drug Dosing 74.65 mL/min Estimated GFR (MDRD) > 60 (>=60) mL/min Glucose 251 H (75-99) mg/dL POC Glucose (75-105) mg/dl Calcium 8.9 (8.4-10.1) mg/dL C-Reactive Protein 23.1 H (0.2-0.8) mg/dL Urine Color Yellow (YELLOW) Urine Appearance Cloudy (CLEAR) Urine pH 7.0 (4.5-8.0) Ur Specific [place] 1.020 (1.003-1.020) Urine Protein 100 H (NEGATIVE) mg/dL Urine Glucose (UA) 500 H (NEGATIVE) mg/dL Urine Ketones Negative (NEGATIVE) mg/dL Urine Occult Blood Small H (NEGATIVE) Urine Nitrite Negative (NEGATIVE) Urine Bilirubin Negative (NEGATIVE) Urine Urobilinogen >=8.0 H (0.2-1.0) EU/dL Ur Leukocyte Esterase Small H (NEGATIVE) Urine RBC 0-5 (0-5) /HPF Urine WBC 40-50 H (0-5) /HPF Urine Bacteria Few H (NOT SEEN) /HPF 10/31/17 10/31/17 10/31/17 Range/Units 07:37 07:37 07:38 WBC 23.2 H* (5.0-10.0) 10^3/uL RBC 4.40 L (4.50-6.00) 10^6/uL Hgb 13.5 L (14.0-18.0) g/dL Hct 40.3 (40.0-54.0) % MCV 91.6 (82.0-94.0) fL MCH 30.7 (27.0-32.0) pg MCHC 33.5 (33.0-38.0) g/dL RDW Coeff of Jaciel 15.1 H (11.0-15.0) % Plt Count 220 (150-400) 10^3/uL Add Manual Diff Yes Neutrophils % (Manual) 91 H (35-85) % Band Neutrophils % (0-5) % Lymphocytes % (Manual) 5 L (21-55) % Monocytes % (Manual) 3 (2-12) % Absolute Neutrophils (1.80-7.00) 10^3/uL Lymphocytes # (Manual) (1.00-4.80) 10^3/uL Monocytes # (Manual) (0.00-0.80) 10^3/uL Sodium 133 L (136-145) mEq/L Potassium 3.6 (3.5-5.0) mEq/L Chloride 101 (98-106) mEq/L Carbon Dioxide 25 (21-32) mmol/L BUN 12 (7-18) mg/dL Creatinine 0.8 (0.7-1.3) mg/dL Est Cr Clr Drug Dosing 102.65 mL/min Estimated GFR (MDRD) > 60 (>=60) mL/min Glucose 235 H (75-99) mg/dL POC Glucose 241 H (75-105) mg/dl Calcium 8.3 L (8.4-10.1) mg/dL C-Reactive Protein 42.2 H (0.2-0.8) mg/dL Urine Color (YELLOW) Urine Appearance (CLEAR) Urine pH (4.5-8.0) Ur Specific [place] (1.003-1.020) Urine Protein (NEGATIVE) mg/dL Urine Glucose (UA) (NEGATIVE) mg/dL Urine Ketones (NEGATIVE) mg/dL Urine Occult Blood (NEGATIVE) Urine Nitrite (NEGATIVE) Urine Bilirubin (NEGATIVE) Urine Urobilinogen (0.2-1.0) EU/dL Ur Leukocyte Esterase (NEGATIVE) Urine RBC (0-5) /HPF Urine WBC (0-5) /HPF Urine Bacteria (NOT SEEN) /HPF 10/31/17 Range/Units 12:15 WBC (5.0-10.0) 10^3/uL RBC (4.50-6.00) 10^6/uL Hgb (14.0-18.0) g/dL Hct (40.0-54.0) % MCV (82.0-94.0) fL MCH (27.0-32.0) pg MCHC (33.0-38.0) g/dL RDW Coeff of Jaciel (11.0-15.0) % Plt Count (150-400) 10^3/uL Add Manual Diff Neutrophils % (Manual) (35-85) % Band Neutrophils % (0-5) % Lymphocytes % (Manual) (21-55) % Monocytes % (Manual) (2-12) % Absolute Neutrophils (1.80-7.00) 10^3/uL Lymphocytes # (Manual) (1.00-4.80) 10^3/uL Monocytes # (Manual) (0.00-0.80) 10^3/uL Sodium (136-145) mEq/L Potassium (3.5-5.0) mEq/L Chloride (98-106) mEq/L Carbon Dioxide (21-32) mmol/L BUN (7-18) mg/dL Creatinine (0.7-1.3) mg/dL Est Cr Clr Drug Dosing mL/min Estimated GFR (MDRD) (>=60) mL/min Glucose (75-99) mg/dL POC Glucose 345 H (75-105) mg/dl Calcium (8.4-10.1) mg/dL C-Reactive Protein (0.2-0.8) mg/dL Urine Color (YELLOW) Urine Appearance (CLEAR) Urine pH (4.5-8.0) Ur Specific [place] (1.003-1.020) Urine Protein (NEGATIVE) mg/dL Urine Glucose (UA) (NEGATIVE) mg/dL Urine Ketones (NEGATIVE) mg/dL Urine Occult Blood (NEGATIVE) Urine Nitrite (NEGATIVE) Urine Bilirubin (NEGATIVE) Urine Urobilinogen (0.2-1.0) EU/dL Ur Leukocyte Esterase (NEGATIVE) Urine RBC (0-5) /HPF Urine WBC (0-5) /HPF Urine Bacteria (NOT SEEN) /HPF Denys Results Last 24 Hours: Microbiology 10/30/17 21:30 Anaerobic Blood Culture - Preliminary Blood - Venous - Lab Draw Gram Negative Rods 10/30/17 22:00 Urine Culture - Preliminary Urine, Voided Gram Negative Rods Med Orders - Current: Current Medications Acetaminophen (Tylenol) 650 mg PO Q4H PRN PRN Reason: Pain (Mild 1-3)/fever Last Admin: 10/31/17 19:51 Dose: 650 mg Carvedilol (Coreg) 12.5 mg PO BID [facility] Last Admin: 10/31/17 19:44 Dose: 12.5 mg Ceftriaxone Sodium (Rocephin) 1 gm IVPUSH Q24H [facility] Last Admin: 10/30/17 23:30 Dose: 1 gm Duloxetine HCl (Cymbalta) 60 mg PO DAILY [facility] Last Admin: 10/31/17 08:07 Dose: 60 mg Enoxaparin Sodium (Lovenox) 40 mg SUBCUT Q24H [facility] Last Admin: 10/30/17 23:27 Dose: 40 mg Folic Acid (Folic Acid) 1 mg PO DAILY [facility] Last Admin: 10/31/17 08:08 Dose: 1 mg Sodium Chloride (Normal Saline) 1,000 mls @ 125 mls/hr IV ASDIRECTED [facility] Last Admin: 10/31/17 16:52 Dose: 125 mls/hr Ibuprofen (Motrin) 600 mg PO Q6H PRN PRN Reason: Pain (mild 1-3) Last Admin: 10/30/17 23:27 Dose: 600 mg Insulin Aspart (Novolog) 28 unit SUBCUT TIDMEALS [facility] Last Admin: 10/31/17 17:33 Dose: 28 units Insulin Detemir (Levemir) 40 unit SUBCUT BID [facility] Last Admin: 10/31/17 20:06 Dose: 40 units Lisinopril (Prinivil) 20 mg PO BID [facility] Last Admin: 10/31/17 19:45 Dose: 20 mg Magnesium Hydroxide (Milk Of Magnesia) 30 ml PO Q12H PRN PRN Reason: Constipation Pantoprazole Sodium (Protonix) 40 mg PO DAILY [facility] Last Admin: 10/31/17 08:09 Dose: 40 mg Pregabalin (Lyrica) 150 mg PO TID [facility] Last Admin: 10/31/17 19:44 Dose: 150 mg Simvastatin (Zocor) 20 mg PO BEDTIME [facility] Last Admin: 10/31/17 19:44 Dose: 20 mg Temazepam (Restoril) 15 mg PO BEDTIME PRN PRN Reason: Sleep Triamcinolone Acetonide (Triamcinolone Acetonide 0.1% Oint) 0 gm TOP DAILY PRN PRN Reason: skin Discontinued Medications Acetaminophen (Tylenol) 650 mg PO NOW ONE Stop: 10/30/17 21:27 Last Admin: 10/30/17 21:28 Dose: 650 mg Sodium Chloride (Normal Saline) 500 mls @ 999 mls/hr IV ONETIME ONE Stop: 10/30/17 23:19 Last Admin: 10/30/17 23:26 Dose: 999 mls/hr Insulin Glargine (Lantus Solostar) 80 units SUBCUT BEDTIME JEZ Iopamidol (Isovue-300 (61%)) 100 ml IVPUSH ONETIME ONE Stop: 10/31/17 07:56 Last Admin: 10/31/17 07:59 Dose: 100 ml Non-Formulary Medication (Clobetasol Propionate [Clobetasol Propionate]) 1 applic TOP BID PRN PRN Reason: SCALP - Exam General: Alert, Oriented HEENT: Mucous Membr. Moist/[place] Neck: Supple Lungs: Clear to Auscultation, Normal Respiratory Effort Cardiovascular: Regular Rate, Regular Rhythm GI/Abdominal Exam: Normal Bowel Sounds, Soft, Tender, Other (right flank pain) Extremities: Other (amputation left leg BKA) Skin: Warm, Dry Neurological: No New Focal Deficit - Problem List & Annotations (1) UTI (urinary tract infection) SNOMED Code(s): 11222370 Code(s): N39.0 - URINARY TRACT INFECTION, SITE NOT SPECIFIED Status: Acute Priority: High Current Visit: Yes - Problem List Review Problem List Initiated/Reviewed/Updated: Yes - Assessment Assessment:: UTI - Plan Plan:: Patient states is feeling better today. Less nausea. Admits to mild abdominal and flank pain today. Appetite has improved. No fevers. Lung sounds clear. Tender to the right lower and upper quadrants. WBC is down to 23 today, CRP however increased to 42.2. Initial urine culture shows gram negative rods, probable proteus. Blood culture also positive for gram negative rods. Await final culture reports tomorrow. Will continue with IV Rocephin and await full sensitivities. IV fluids. Reevaluate labs in am.
[2017-10-31] MEDS: Enoxaparin 40 MG/0.4 ML Syringe SUBCUT SCH (21:52)
[2017-10-31] MEDS: cefTRIAXone 1 GM Vial IVPUSH SCH (21:52)
[2017-11-01] MEDS: Sodium Chloride 0.9% 1,000 ML IV SCH ×3 (01:23→17:38)
[2017-11-01 07:38] LABS: CHLORIDE,CL 102 mEq/L (98-106); SODIUM,NA 134 mEq/L (136-145)
[2017-11-01] MEDS: Pregabalin 50 MG Cap PO SCH ×3 (07:42→19:56)
[2017-11-01] MEDS: Pantoprazole 40 MG Tab.CR PO SCH (07:42)
[2017-11-01] MEDS: Folic Acid 1 MG Tab PO SCH (07:43)
[2017-11-01] MEDS: DULoxetine 30 MG Cap PO SCH (07:43)
[2017-11-01] MEDS: Insulin Detemir 100 Units/ML 3 ML Pen SUBCUT SCH ×2 (07:57→19:58)
[2017-11-01] MEDS: Insulin Aspart 100 Units/ML 3 ML Pen SUBCUT SCH ×5 (07:57→17:35)
[2017-11-01] MEDS: Lisinopril 20 MG Tab PO SCH (09:12)
[2017-11-01] MEDS: Carvedilol 12.5 MG Tab PO SCH ×2 (09:22→19:56)
[2017-11-01] MEDS ORDERED: Polyvinyl Alcohol 1.4% Ophth Soln 15 ML Bottle EYEBOTH PRN (09:44)
[2017-11-01] MEDS: Ibuprofen 200 MG Tab PO PRN (14:52)
--- NOTE | 2017-11-01 16:23 | PCM.PN ---
- General Info Date of Service: 11/01/17 Admission Dx/Problem (Free Text): UTI with sepsis Functional Status: Reports: Pain Controlled, Tolerating Diet. Denies: Ambulating - Review of Systems General: Reports: Weakness, Fatigue. Denies: Fever HEENT: Reports: No Symptoms Pulmonary: Denies: Shortness of Breath, Cough Cardiovascular: Denies: Chest Pain, Edema, Lightheadedness Gastrointestinal: Denies: Abdominal Pain, Nausea, Vomiting Genitourinary: Reports: No Symptoms Musculoskeletal: Reports: No Symptoms Skin: Reports: No Symptoms Neurological: Reports: No Symptoms - Patient Data Vitals - Most Recent: Last Vital Signs Temp 97.3 F 11/01/17 12:00 Pulse 80 11/01/17 12:00 Resp 18 11/01/17 12:00 BP 108/53 L 11/01/17 12:00 Pulse Ox 95 11/01/17 12:00 Weight - Most Recent: 213 lb I&O - Last 24 Hours: Intake & Output 11/01/17 11/01/17 11/01/17 06:59 14:59 22:59 Intake Total 1000 1000 Balance 1000 1000 Lab Results Last 24 Hours: Laboratory Results - last 24 hr 10/31/17 10/31/17 11/01/17 Range/Units 17:31 20:05 07:00 WBC (5.0-10.0) 10^3/uL RBC (4.50-6.00) 10^6/uL Hgb (14.0-18.0) g/dL Hct (40.0-54.0) % MCV (82.0-94.0) fL MCH (27.0-32.0) pg MCHC (33.0-38.0) g/dL RDW Coeff of Jaciel (11.0-15.0) % Plt Count (150-400) 10^3/uL Neut % (Auto) (35-85) % Lymph % (Auto) (10-55) % [place] % (Auto) (0-16) % Eos % (Auto) (0-5) % Baso % (Auto) (0-3) % Neut # (Auto) (1.80-7.00) 10^3/uL Lymph # (Auto) (1.00-4.80) 10^3/uL [place] # (Auto) (0.00-0.80) 10^3/uL Eos # (Auto) (0.00-0.45) 10^3/uL Baso # (Auto) 10^3/uL Sodium (136-145) mEq/L Potassium (3.5-5.0) mEq/L Chloride (98-106) mEq/L Carbon Dioxide (21-32) mmol/L BUN (7-18) mg/dL Creatinine (0.7-1.3) mg/dL Est Cr Clr Drug Dosing mL/min Estimated GFR (MDRD) (>=60) mL/min Glucose (75-99) mg/dL POC Glucose 262 H 316 H (75-105) mg/dl Calcium (8.4-10.1) mg/dL Troponin I 0.289 H (0.00-0.06) ng/mL C-Reactive Protein (0.2-0.8) mg/dL 11/01/17 11/01/17 11/01/17 Range/Units 07:10 07:10 07:34 WBC 17.6 H (5.0-10.0) 10^3/uL RBC 4.00 L (4.50-6.00) 10^6/uL Hgb 12.2 L (14.0-18.0) g/dL Hct 36.4 L (40.0-54.0) % MCV 91.0 (82.0-94.0) fL MCH 30.5 (27.0-32.0) pg MCHC 33.5 (33.0-38.0) g/dL RDW Coeff of Jaciel 14.8 (11.0-15.0) % Plt Count 204 (150-400) 10^3/uL Neut % (Auto) 84.4 (35-85) % Lymph % (Auto) 7.8 L (10-55) % [place] % (Auto) 7.4 (0-16) % Eos % (Auto) 0.3 (0-5) % Baso % (Auto) 0.1 (0-3) % Neut # (Auto) 14.86 H (1.80-7.00) 10^3/uL Lymph # (Auto) 1.37 (1.00-4.80) 10^3/uL [place] # (Auto) 1.30 H (0.00-0.80) 10^3/uL Eos # (Auto) 0.05 (0.00-0.45) 10^3/uL Baso # (Auto) 0.02 10^3/uL Sodium 134 L (136-145) mEq/L Potassium 3.6 (3.5-5.0) mEq/L Chloride 102 (98-106) mEq/L Carbon Dioxide 26 (21-32) mmol/L BUN 9 (7-18) mg/dL Creatinine 0.8 (0.7-1.3) mg/dL Est Cr Clr Drug Dosing 102.65 mL/min Estimated GFR (MDRD) > 60 (>=60) mL/min Glucose 237 H (75-99) mg/dL POC Glucose 217 H (75-105) mg/dl Calcium 7.9 L (8.4-10.1) mg/dL Troponin I (0.00-0.06) ng/mL C-Reactive Protein 19.6 H (0.2-0.8) mg/dL Denys Results Last 24 Hours: Microbiology 10/30/17 21:30 Aerobic Blood Culture - Preliminary Blood - Venous - Lab Draw NO GROWTH AFTER 1 DAY Anaerobic Blood Culture - Final Proteus Mirabilis. 10/30/17 22:00 Urine Culture - Final Urine, Voided Proteus Mirabilis 10/30/17 21:20 Aerobic Blood Culture - Preliminary Blood - Venous NO GROWTH AFTER 1 DAY Anaerobic Blood Culture - Preliminary NO GROWTH AFTER 1 DAY Med Orders - Current: Current Medications Acetaminophen (Tylenol) 650 mg PO Q4H PRN PRN Reason: Pain (Mild 1-3)/fever Last Admin: 10/31/17 19:51 Dose: 650 mg Artificial Tears (Liquitears 1.4% Ophth Soln) 1 ml EYEBOTH TID PRN PRN Reason: Dry Eyes Carvedilol (Coreg) 12.5 mg PO BID [facility] Last Admin: 11/01/17 09:22 Dose: 12.5 mg Ceftriaxone Sodium (Rocephin) 1 gm IVPUSH Q24H [facility] Last Admin: 10/31/17 21:52 Dose: 1 gm Duloxetine HCl (Cymbalta) 60 mg PO DAILY [facility] Last Admin: 11/01/17 07:43 Dose: 60 mg Enoxaparin Sodium (Lovenox) 40 mg SUBCUT Q24H [facility] Last Admin: 10/31/17 21:52 Dose: 40 mg Folic Acid (Folic Acid) 1 mg PO DAILY [facility] Last Admin: 11/01/17 07:43 Dose: 1 mg Sodium Chloride (Normal Saline) 1,000 mls @ 125 mls/hr IV ASDIRECTED [facility] Last Admin: 11/01/17 09:35 Dose: 125 mls/hr Ibuprofen (Motrin) 600 mg PO Q6H PRN PRN Reason: Pain (mild 1-3) Last Admin: 11/01/17 14:52 Dose: 600 mg Insulin Aspart (Novolog) 28 unit SUBCUT TIDMEALS [facility] Last Admin: 11/01/17 12:16 Dose: 28 units Insulin Aspart (Novolog) 0 unit SUBCUT TIDMEALS [facility]; Protocol Last Admin: 11/01/17 12:18 Dose: 6 units Insulin Detemir (Levemir) 40 unit SUBCUT BID [facility] Last Admin: 11/01/17 07:57 Dose: 40 units Lisinopril (Prinivil) 20 mg PO BID [facility] Last Admin: 11/01/17 09:12 Dose: Not Given Magnesium Hydroxide (Milk Of Magnesia) 30 ml PO Q12H PRN PRN Reason: Constipation Pantoprazole Sodium (Protonix) 40 mg PO DAILY [facility] Last Admin: 11/01/17 07:42 Dose: 40 mg Pregabalin (Lyrica) 150 mg PO TID [facility] Last Admin: 11/01/17 14:51 Dose: 150 mg Simvastatin (Zocor) 20 mg PO BEDTIME [facility] Last Admin: 10/31/17 19:44 Dose: 20 mg Temazepam (Restoril) 15 mg PO BEDTIME PRN PRN Reason: Sleep Triamcinolone Acetonide (Triamcinolone Acetonide 0.1% Oint) 0 gm TOP DAILY PRN PRN Reason: skin Discontinued Medications Acetaminophen (Tylenol) 650 mg PO NOW ONE Stop: 10/30/17 21:27 Last Admin: 10/30/17 21:28 Dose: 650 mg Sodium Chloride (Normal Saline) 500 mls @ 999 mls/hr IV ONETIME ONE Stop: 10/30/17 23:19 Last Admin: 10/30/17 23:26 Dose: 999 mls/hr Insulin Glargine (Lantus Solostar) 80 units SUBCUT BEDTIME [facility] Iopamidol (Isovue-300 (61%)) 100 ml IVPUSH ONETIME ONE Stop: 10/31/17 07:56 Last Admin: 10/31/17 07:59 Dose: 100 ml Non-Formulary Medication (Clobetasol Propionate [Clobetasol Propionate]) 1 applic TOP BID PRN PRN Reason: SCALP - Exam General: Oriented, Lethargic HEENT: Mucous Membr. Moist/[place] Neck: Supple Lungs: Clear to Auscultation, Normal Respiratory Effort Cardiovascular: Regular Rate, Regular Rhythm GI/Abdominal Exam: Normal Bowel Sounds, Soft, Non-Tender Extremities: Normal Inspection, No Pedal Edema, Other (venous stasis changes to right lower extremity) Skin: Warm, Dry Neurological: No New Focal Deficit - Problem List & Annotations (1) UTI (urinary tract infection) SNOMED Code(s): 44009026 Code(s): N39.0 - URINARY TRACT INFECTION, SITE NOT SPECIFIED Status: Acute Priority: High Current Visit: Yes - Problem List Review Problem List Initiated/Reviewed/Updated: Yes - My Orders Last 24 Hours: My Active Orders 11/01/17 09:44 Polyvinyl Alcohol [LiquiTears 1.4% Ophth Soln] 1 ml EYEBOTH TID PRN 11/01/17 12:00 Insulin Aspart [NovoLOG] See Protocol SUBCUT TIDMEALS 11/02/17 05:11 TROPONIN I [CHEM] AM - Assessment Assessment:: UTI - Plan Plan:: Patient states is feeling better today. Less nausea. Admits to mild abdominal and flank pain today. Appetite has improved. No fevers. Lung sounds clear. Tender to the right lower and upper quadrants. WBC is down to 23 today, CRP however increased to 42.2. Initial urine culture shows gram negative rods, probable proteus. Blood culture also positive for gram negative rods. Await final culture reports tomorrow. Will continue with IV Rocephin and await full sensitivities. IV fluids. Reevaluate labs in am. 11-01-2017 Patient admits to being more tired this am. He states he did not sleep well last night, awake every hour or so. Overall, feels better otherwise. Less back and abdominal pain. Blood pressure is low this am 94/49. Afebrile. Has had a good appetite. Labs show WBC of 17.6, improved from 29. CRP down to 19.6. Blood cultures and urine culture both show proteus, covered with Rocephin. Telemetry through the night does show mild ST changes. Will hold his Lisinopril this am. Continue Coreg. Will obtain EKG and troponin this am. Continue to follow.
[2017-11-01] MEDS: Simvastatin 20 MG Tab PO SCH (19:56)
[2017-11-01] MEDS: Enoxaparin 40 MG/0.4 ML Syringe SUBCUT SCH (21:50)
[2017-11-01] MEDS: cefTRIAXone 1 GM Vial IVPUSH SCH (21:50)
[2017-11-02] MEDS: Sodium Chloride 0.9% 1,000 ML IV SCH (01:16)
[2017-11-02] MEDS: Ibuprofen 200 MG Tab PO PRN ×2 (03:20→08:03)
[2017-11-02 07:33] VITALS: BP 114/62
[2017-11-02] MEDS: DULoxetine 30 MG Cap PO SCH (07:53)
[2017-11-02] MEDS: Pantoprazole 40 MG Tab.CR PO SCH (07:53)
[2017-11-02] MEDS: Carvedilol 12.5 MG Tab PO SCH (07:53)
[2017-11-02] MEDS: Pregabalin 50 MG Cap PO SCH (07:53)
[2017-11-02 07:54] LABS: CHLORIDE,CL 105 mEq/L (98-106); SODIUM,NA 136 mEq/L (136-145)
[2017-11-02] MEDS: Folic Acid 1 MG Tab PO SCH (07:54)
[2017-11-02] MEDS: Insulin Detemir 100 Units/ML 3 ML Pen SUBCUT SCH (08:04)
[2017-11-02] MEDS: Insulin Aspart 100 Units/ML 3 ML Pen SUBCUT SCH ×2 (08:05)
== END 2017-11-02 11:40 | disposition home or self-care (01) | DRG 872 ==
LOC: CC.ED 20:42 → CC.MS 21:47 → CC.ED 21:50 → CC.MS 21:51 → INTOOBSV 21:51 → OBSVTOIN 21:51 → UNDOADMOB 21:51
PROVIDERS: ADMIT Nurse Practitioner Family; ATTEND Family Medicine
DX: A41.89 Other specified sepsis (principal); N39.0 Urinary tract infection, site not specified; I42.9 Cardiomyopathy, unspecified; E11.9 Type 2 diabetes mellitus without complications; I48.91 Unspecified atrial fibrillation; I25.10 Atherosclerotic heart disease of native coronary artery without angina pectoris; M06.9 Rheumatoid arthritis, unspecified; E78.5 Hyperlipidemia, unspecified; G89.29 Other chronic pain; M54.9 Dorsalgia, unspecified; I11.0 Hypertensive heart disease with heart failure; E78.00 Pure hypercholesterolemia, unspecified; J44.9 Chronic obstructive pulmonary disease, unspecified; K21.9 Gastro-esophageal reflux disease without esophagitis; M19.90 Unspecified osteoarthritis, unspecified site; I50.9 Heart failure, unspecified; L40.9 Psoriasis, unspecified; Z86.14 Personal history of Methicillin resistant Staphylococcus aureus infection; Z95.828 Presence of other vascular implants and grafts; Z98.1 Arthrodesis status; Z89.9 Acquired absence of limb, unspecified; Z88.8 Allergy status to other drugs, medicaments and biological substances; Z79.4 Long term (current) use of insulin; Z95.810 Presence of automatic (implantable) cardiac defibrillator; R53.83 Other fatigue; R06.00 Dyspnea, unspecified; R05 Cough; N23 Unspecified renal colic; R35.0 Frequency of micturition; M54.2 Cervicalgia; M25.519 Pain in unspecified shoulder; M79.603 Pain in arm, unspecified; R32 Unspecified urinary incontinence; R50.9 Fever, unspecified; R39.15 Urgency of urination; R30.0 Dysuria; R53.1 Weakness; D72.829 Elevated white blood cell count, unspecified; Z79.899 Other long term (current) drug therapy
CPT/HCPCS: 36415; 71260; 74177; 80048; 81001; 82962; 84484; 85025; 86140; 87040; 87077; 87086; 87088; 87186; 93005; 99284; A9270-GY; J0696; J1650; J1815-GY; J7030; J7040; Q9967

== ENCOUNTER 2018-03-29 14:48 | Emergency (ER) | payer MEDICARE, OTHER ==
[2018-03-29 15:09] VITALS: BP 136/66
[2018-03-29] MEDS ORDERED: Ketorolac 60 MG/2 ML SDV IM ONE (15:44)
--- NOTE | 2018-03-29 15:45 | EDM.PDOC ---
ED HPI GENERAL MEDICAL PROBLEM - General Chief Complaint: Upper Extremity Injury/Pain Stated Complaint: LT JAY JAY HOOKS Time Seen by Provider: 03/29/18 15:35 Source of Information: Reports: Patient History Limitations: Reports: No Limitations - History of Present Illness INITIAL COMMENTS - FREE TEXT/NARRATIVE: I need something for the flare up of my psoriatic arthritis. "I can't get into my PCP at [facility] until next week. He is supposed to be getting me an appt with rheumatology but they haven't been able to do that yet. My left wrist is very painful. Has been gradually getting worse. Denies any trauma with it. States that hs rash has become worse recently also. Is currently on Lyrica and cymbalta for this. Uses Triamcinolone cream for the rash. Denies any numbness or tingling. Onset: Gradual Location: Reports: Upper Extremity, Left Quality: Reports: Sharp Left Wrist Pain Score (Numeric/FACES): 10 - Related Data Allergies Allergy/AdvReac Type Severity Reaction Status Date / Time pentazocine lactate Allergy Intermediate Itching Verified 03/29/18 15:27 [From Jignesh] gold shots Allergy Intermediate Blisters Uncoded 10/30/17 21:13 Home Meds: Home Meds DULoxetine HCl [Cymbalta] 60 mg PO DAILY 05/19/13 [History] Folic Acid 1 mg PO DAILY 05/19/13 [History] Insulin Glarg,Human.Rec.Analog [Lantus Solostar] 80 units SQ BEDTIME 05/19/13 [ History] Lisinopril 20 mg PO BID 05/19/13 [History] Simvastatin 20 mg PO BEDTIME 05/19/13 [History] Pregabalin [Lyrica] 150 mg PO TID 02/06/15 [History] metFORMIN [Glucophage] 500 mg PO BIDMEALS 02/06/15 [History] Carvedilol 12.5 mg PO BID 08/04/15 [History] Clobetasol Propionate 1 applic TOP BID PRN 08/04/15 [History] Pantoprazole Sodium 40 mg PO DAILY 07/05/16 [History] Triamcinolone Acetonide [Triamcinolone Acetonide 0.1% Oint] 1 applic TOP DAILY PRN 07/05/16 [History] Insulin Aspart [NovoLOG] 28 units SUBCUT TIDMEALS 10/30/17 [History] Carboxymethylcellulose Sodium [Refresh Tears] 1 drop EYEBOTH QID PRN 11/01/17 [ History] Past Medical History - Past Health History Medical/Surgical History: Denies Medical/Surgical History HEENT History: Reports: Other (See Below) Other HEENT History: sore throat and headache Cardiovascular History: Reports: Afib, Automatic Implantable Cardioverter Defibrillators, Cardiomyopathy, Heart Failure, High Cholesterol, Hypertension, Pacemaker, Stents Respiratory History: Reports: COPD Gastrointestinal History: Reports: GERD Genitourinary History: Reports: None Musculoskeletal History: Reports: Amputation, Arthritis, Osteoarthritis, RA Other Musculoskeletal History: broken ankle Neurological History: Reports: None Psychiatric History: Reports: None Endocrine/Metabolic History: Reports: Diabetes, Type II Hematologic History: Reports: None Immunologic History: Reports: Immunosuppression Oncologic (Cancer) History: Reports: None Dermatologic History: Reports: Psoriasis Other Dermatologic History: PSORIATIC ARTHRITIS - Infectious Disease History Infectious Disease History: Reports: MRSA - Past Surgical History Cardiovascular Surgical History: Reports: AICD, Vascular Surgery, Other (See Below) Other Cardiovascular Surgeries/Procedures: stent in left leg GI Surgical History: Reports: None Neurological Surgical History: Reports: Spinal Fusion Musculoskeletal Surgical History: Reports: Amputation, Shoulder Surgery Social & Family History - Family History Family Medical History: Noncontributory - Tobacco Use Smoking Status *Q: Current Every Day Smoker Years of Tobacco use: 50 Packs/Tins Daily: 0.2 - Caffeine Use Caffeine Use: Reports: Coffee - Recreational Drug Use Recreational Drug Use: No - Living Situation & Occupation Living situation: Reports: , with Family Occupation: Disabled Review of Systems - Review of Systems Review Of Systems: See Below Constitutional: Reports: No Symptoms Eyes: Reports: No Symptoms Ears: Reports: No Symptoms Mouth/Throat: Reports: No Symptoms Respiratory: Reports: No Symptoms Cardiovascular: Reports: No Symptoms Musculoskeletal: Reports: Joint Pain (left wrist.) Skin: Reports: Rash (has psoriasis all over body.) Neurological: Reports: No Symptoms Psychiatric: Reports: No Symptoms ED EXAM, GENERAL - Physical Exam Exam: See Below Exam Limited By: No Limitations General Appearance: Alert, WD/WN, Moderate Distress Ears: Normal External Exam, Normal Canal, Normal TMs Nose: Normal Inspection Throat/Mouth: Normal Inspection, Normal Oropharynx Head: Atraumatic, Normocephalic Neck: Normal Inspection, Supple Respiratory/Chest: No Respiratory Distress, Lungs Clear, Normal Breath Sounds Cardiovascular: Regular Rate, Rhythm Extremities: Arm Pain (Pain to the left wrist with any movement of wrist. No swelling noted. Good pulse noted. Good senesation noted distally.) Neurological: Alert, Oriented Skin Exam: Warm, Dry Course - Vital Signs Last Recorded V/S: Last Vital Signs Temp 98.5 F 03/29/18 14:55 Pulse 86 03/29/18 14:55 Resp 18 03/29/18 14:55 BP 136/66 03/29/18 14:55 Pulse Ox 100 03/29/18 14:55 - Orders/Labs/Meds Orders: Active Orders 24 hr Category Date Time Status Wrist Comp Min 3V Lt [CR] Stat Exams 03/29/18 15:15 Taken Labs: Laboratory Tests 03/29/18 03/29/18 Range/Units 15:15 15:15 WBC 10.0 (5.0-10.0) 10^3/uL RBC 4.84 (4.50-6.00) 10^6/uL Hgb 13.5 L (14.0-18.0) g/dL Hct 41.0 (40.0-54.0) % MCV 84.7 (82.0-94.0) fL MCH 27.9 (27.0-32.0) pg MCHC 32.9 L (33.0-38.0) g/dL RDW Coeff of Jaciel 13.6 (11.0-15.0) % Plt Count 369 (150-400) 10^3/uL Neut % (Auto) 68.3 (35-85) % Lymph % (Auto) 19.2 (10-55) % Dodge % (Auto) 11.4 (0-16) % Eos % (Auto) 1.0 (0-5) % Baso % (Auto) 0.1 (0-3) % Neut # (Auto) 6.81 (1.80-7.00) 10^3/uL Lymph # (Auto) 1.92 (1.00-4.80) 10^3/uL Dodge # (Auto) 1.14 H (0.00-0.80) 10^3/uL Eos # (Auto) 0.10 (0.00-0.45) 10^3/uL Baso # (Auto) 0.01 10^3/uL C-Reactive Protein 6.0 H (0.2-0.8) mg/dL Meds: Medications Discontinued Medications Generic Name Dose Route Start Last Admin Trade Name Urvashi PRN Reason Stop Dose Admin Ketorolac Tromethamine 60 mg 03/29/18 15:44 03/29/18 15:54 Toradol IM 03/29/18 15:45 60 mg ONETIME ONE Administration Departure - Departure Time of Disposition: 15:41 Disposition: Home, Self-Care 01 Condition: Good Clinical Impression: Psoriatic arthritis - Discharge Information *PRESCRIPTION DRUG MONITORING PROGRAM REVIEWED*: Not Applicable *COPY OF PRESCRIPTION DRUG MONITORING REPORT IN PATIENT SEGUNDO: Not Applicable Instructions: Celecoxib capsules Referrals: PCP,None [Primary Care Provider] - Forms: ED Department Discharge Additional Instructions: warm packs to wrist. Elevate for comfort Start celebrex 200 mg daily. Take with food You need to make appt with PCP to discuss medication adjustments. - Problem List & Annotations (1) Psoriatic arthritis SNOMED Code(s): 757788879 Code(s): L40.50 - ARTHROPATHIC PSORIASIS, UNSPECIFIED Status: Acute Priority: High - My Orders Last 24 Hours: My Active Orders 03/29/18 15:15 Wrist Comp Min 3V Lt [CR] Stat - Assessment/Plan Last 24 Hours: My Active Orders 03/29/18 15:15 Wrist Comp Min 3V Lt [CR] Stat Plan: Follow up with PCP
== END 2018-03-29 16:10 | disposition home or self-care (01) ==
LOC: CC.ED 14:48
DX: L40.50 Arthropathic psoriasis, unspecified (principal); E11.9 Type 2 diabetes mellitus without complications; I11.0 Hypertensive heart disease with heart failure; I50.9 Heart failure, unspecified; I25.2 Old myocardial infarction; E78.00 Pure hypercholesterolemia, unspecified; K21.9 Gastro-esophageal reflux disease without esophagitis; J44.9 Chronic obstructive pulmonary disease, unspecified; F17.210 Nicotine dependence, cigarettes, uncomplicated; Z79.4 Long term (current) use of insulin; Z91.09 Other allergy status, other than to drugs and biological substances; Z88.8 Allergy status to other drugs, medicaments and biological substances; Z79.899 Other long term (current) drug therapy
CPT/HCPCS: 36415; 73110; 85025; 86140; 96372; 99283; J1885

== ENCOUNTER 2018-07-11 21:23 | Emergency (ER) | payer MEDICARE, MEDICAID ==
[2018-07-11] MEDS ORDERED: Clindamycin HCl 150 MG Cap PO ONE (21:24)
[2018-07-11 21:26] VITALS: BP 134/72
--- NOTE | 2018-07-11 21:53 | EDM.PDOC ---
ED HPI GENERAL MEDICAL PROBLEM - General Chief Complaint: Lower Extremity Injury/Pain Stated Complaint: sore on R foot Time Seen by Provider: 07/11/18 21:45 Source of Information: Reports: Patient History Limitations: Reports: No Limitations - History of Present Illness INITIAL COMMENTS - FREE TEXT/NARRATIVE: was seen at [facility] on for swelling to the left stump and has been on cephalexin since then. The swelling has gone down to that but he has now noted that the 2nd toe on the right foot is swollen, red and has a sore on the bottom of it that he hasn't noted before. He denies that the sore was there or the toe swollen when seeing Dr. Chaves previously. He has noted some drainage from it. He denies any pain to it as he doesn't have much feeling in his feet. Is diabetic and a smoker. 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 Onset: Gradual Right Foot Pain Score (Numeric/FACES): 6 - Related Data Allergies Allergy/AdvReac Type Severity Reaction Status Date / Time pentazocine lactate Allergy Intermediate Itching Verified 07/11/18 21:34 [From Jignesh] gold shots Allergy Intermediate Blisters Uncoded 07/11/18 21:34 Home Meds: Home Meds DULoxetine HCl [Cymbalta] 60 mg PO DAILY 05/19/13 [History] Insulin Glarg,Human.Rec.Analog [Lantus Solostar] 80 units SQ BEDTIME 05/19/13 [ History] Lisinopril 40 mg PO BID 05/19/13 [History] Simvastatin 20 mg PO BEDTIME 05/19/13 [History] Pregabalin [Lyrica] 150 mg PO TID 02/06/15 [History] metFORMIN [Glucophage] 500 mg PO BIDMEALS 02/06/15 [History] Carvedilol 12.5 mg PO BID 08/04/15 [History] Clobetasol Propionate 1 applic TOP BID PRN 08/04/15 [History] Pantoprazole Sodium 40 mg PO DAILY 07/05/16 [History] Triamcinolone Acetonide [Triamcinolone Acetonide 0.1% Oint] 1 applic TOP DAILY PRN 07/05/16 [History] Insulin Aspart [NovoLOG] 28 units SUBCUT TIDMEALS 10/30/17 [History] Carboxymethylcellulose Sodium [Refresh Tears] 1 drop EYEBOTH QID PRN 11/01/17 [ History] Aspirin 1 tab PO DAILY 07/11/18 [History] Celecoxib 1 tab PO BID 07/11/18 [History] Cephalexin [Keflex] 1 tab PO Q6HR 07/11/18 [History] Cholecalciferol (Vitamin D3) [Vitamin D3] 2,000 unit PO DAILY 07/11/18 [History] Hydrocodone/Acetaminophen [Hydrocodon-Acetaminophen 5-325] 1 tab PO Q6H [History] Saxagliptin HCl [Onglyza] 1 tab PO DAILY 07/11/18 [History] Past Medical History - Past Health History Medical/Surgical History: Denies Medical/Surgical History HEENT History: Reports: Other (See Below) Other HEENT History: sore throat and headache Cardiovascular History: Reports: Afib, Automatic Implantable Cardioverter Defibrillators, Cardiomyopathy, Heart Failure, High Cholesterol, Hypertension, Pacemaker, Stents Respiratory History: Reports: COPD Gastrointestinal History: Reports: GERD Genitourinary History: Reports: None Musculoskeletal History: Reports: Amputation, Arthritis, Osteoarthritis, RA Other Musculoskeletal History: broken ankle Neurological History: Reports: None Psychiatric History: Reports: None Endocrine/Metabolic History: Reports: Diabetes, Type II Hematologic History: Reports: None Immunologic History: Reports: Immunosuppression Oncologic (Cancer) History: Reports: None Dermatologic History: Reports: Psoriasis Other Dermatologic History: PSORIATIC ARTHRITIS - Infectious Disease History Infectious Disease History: Reports: MRSA - Past Surgical History Cardiovascular Surgical History: Reports: AICD, Vascular Surgery, Other (See Below) Other Cardiovascular Surgeries/Procedures: stent in left leg GI Surgical History: Reports: None Neurological Surgical History: Reports: Spinal Fusion Musculoskeletal Surgical History: Reports: Amputation, Shoulder Surgery Social & Family History - Family History Family Medical History: Noncontributory - Caffeine Use Caffeine Use: Reports: Coffee - Living Situation & Occupation Living situation: Reports: , with Family Occupation: Disabled Review of Systems - Review of Systems Review Of Systems: See Below Constitutional: Denies: Chills, Fever Respiratory: Reports: No Symptoms Skin: Reports: Wound (right second toe.) ED EXAM, GENERAL - Physical Exam Exam: See Below Exam Limited By: No Limitations General Appearance: Alert, WD/WN Respiratory/Chest: No Respiratory Distress, Lungs Clear, Normal Breath Sounds Cardiovascular: Regular Rate, Rhythm, No Edema Peripheral Pulses: 0: Dorsalis Pedis (R) GI/Abdominal: Normal Bowel Sounds, Soft Extremities: Other (left leg is amputated. Right second toe is red, swollen, and has 2cm X 2 cm lesion on the pad of the toe that is scabbed over but draining around it and has an odor to it. culture obtained. No pulse noted on that foot which he states is watermaster. Not able to feel when touched with cotton swab or wooden end of swab. ) Neurological: Alert, Oriented Skin Exam: Warm, Dry, Wound/Incision (see above.) Course - Vital Signs Last Recorded V/S: Last Vital Signs Temp 98.2 F 07/11/18 21:24 Pulse 93 07/11/18 21:24 Resp 18 07/11/18 21:24 BP 134/72 07/11/18 21:24 Pulse Ox 99 07/11/18 21:24 Departure - Departure Time of Disposition: 22:02 Disposition: Home, Self-Care 01 Condition: Fair Clinical Impression: Infected abrasion of second toe of right foot Qualifiers: Encounter type: initial encounter Qualified Code(s): S90.414A - Abrasion, right lesser toe(s), initial encounter; L08.9 - Local infection of the skin and subcutaneous tissue, unspecified - Discharge Information *PRESCRIPTION DRUG MONITORING PROGRAM REVIEWED*: Not Applicable *COPY OF PRESCRIPTION DRUG MONITORING REPORT IN PATIENT SEGUNDO: Not Applicable Additional Instructions: change dressing twice a day with antibiotic ointment and clean dressing. Follow up with Dr. Chaves at [place] as soon as possible to monitor the infection elevate to prevent swelling Clindamycin 300 mg three times a day for 10 days If infection gets worse then needs to return to Dr. Chaves in the clinic - Problem List & Annotations (1) Infected abrasion of second toe of right foot SNOMED Code(s): 520910538 Code(s): S90.414A - ABRASION, RIGHT LESSER TOE(S), INITIAL ENCOUNTER; L08.9 - LOCAL INFECTION OF THE SKIN AND SUBCUTANEOUS TISSUE, UNSP Status: Acute Priority: High Current Visit: Yes - Problem List Review Problem List Initiated/Reviewed/Updated: Yes
[2018-07-11] MEDS: Take Home: Clindamycin HCl 150 MG Cap, 6 Cap Pack PO ONE (21:55)
[2018-07-11] MEDS: Bacitracin/Neomycin/Polymyxin B Oint 0.9 GM U/D Packet ONE (22:03)
== END 2018-07-11 22:19 | disposition home or self-care (01) ==
LOC: CC.ED 21:23
DX: S90.414A Abrasion, right lesser toe(s), initial encounter (principal); L08.9 Local infection of the skin and subcutaneous tissue, unspecified; I48.91 Unspecified atrial fibrillation; K21.9 Gastro-esophageal reflux disease without esophagitis; E11.9 Type 2 diabetes mellitus without complications; Z88.8 Allergy status to other drugs, medicaments and biological substances; Z79.899 Other long term (current) drug therapy; Z79.4 Long term (current) use of insulin; F17.290 Nicotine dependence, other tobacco product, uncomplicated; X58.XXXA Exposure to other specified factors, initial encounter
CPT/HCPCS: 87070; 99283; A9270; 87077; 87186

== ENCOUNTER 2020-11-09 20:44 | Emergency (ER) | payer MEDICARE, MEDICAID, OTHER ==
[2020-11-09 20:47] VITALS: BP 139/71; PULSE 81
--- NOTE | 2020-11-09 21:26 | EDM.PDOC ---
ED HPI GENERAL MEDICAL PROBLEM - General Chief Complaint: General Stated Complaint: Knee Pain Time Seen by Provider: 11/09/20 21:00 Source of Information: Reports: Patient History Limitations: Reports: No Limitations - History of Present Illness INITIAL COMMENTS - FREE TEXT/NARRATIVE: Jef is a 70 yo male who presents to the clinic with concerns of right knee pain. Also has complaints of a sore on his right buttocks. States the sore on his buttocks has been there for awhile now. 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 States it felt great after the injection around 2:00pm and started getting sore on his way home. States it continues to be sore this evening. Denies any fevers. States they did take out quite a bit of bloody and then clear fluid from the knee. knee Pain Score (Numeric/FACES): 6 - Related Data Allergies Allergy/AdvReac Type Severity Reaction Status Date / Time pentazocine lactate Allergy Intermediate Itching Verified 11/09/20 20:51 [From Jignesh] gold shots Allergy Intermediate Blisters Uncoded 11/09/20 20:51 Home Meds: Home Meds DULoxetine HCl [Cymbalta] 60 mg PO DAILY 05/19/13 [History] Simvastatin 20 mg PO BEDTIME 05/19/13 [History] Pregabalin [Lyrica] 150 mg PO TID 02/06/15 [History] metFORMIN [Glucophage] 500 mg PO BID 02/06/15 [History] Clobetasol Propionate 1 applic TOP BID PRN 08/04/15 [History] carvediloL [Carvedilol] 12.5 mg PO BID 08/04/15 [History] Pantoprazole Sodium 40 mg PO DAILY 07/05/16 [History] Triamcinolone Acetonide [Triamcinolone Acetonide 0.1% Oint] 1 applic TOP DAILY PRN 07/05/16 [History] Carboxymethylcellulose Sodium [Refresh Tears] 1 drop EYEBOTH QID PRN 11/01/17 [History] Aspirin 81 mg PO DAILY 07/11/18 [History] Celecoxib 200 mg PO BID 07/11/18 [History] Cholecalciferol (Vitamin D3) [Vitamin D3] 2,000 unit PO DAILY 07/11/18 [History] Saxagliptin HCl [Onglyza] 5 mg PO DAILY 07/11/18 [History] Apremilast [Otezla] 30 mg PO BID 06/02/20 [History] Calcipotriene [Dovonex 0.005% Crm] 1 applic TOP BID 06/02/20 [History] Folic Acid 1 mg PO DAILY 06/02/20 [History] Insulin Lispro [HumaLOG] 20 units SQ TID 06/02/20 [History] Methotrexate 10 mg SQ .Q7DAYS 06/02/20 [History] Tadalafil [Cialis] 10 mg PO ASDIRECTED PRN 06/02/20 [History] Acetaminophen [Tylenol Extra Strength] 500 mg PO BID 06/05/20 [History] Alogliptin Benzoate [Alogliptin] 25 mg PO DAILY 06/05/20 [History] Cetirizine [ZyrTEC] 10 mg PO ASDIRECTED PRN 06/05/20 [History] Insulin Glargine,Hum.Rec.Anlog [Lantus Solostar] 20 - 40 units INJECT ASDIRECTED 06/05/20 [History] Nitroglycerin 0.4 mg SL ASDIRECTED 06/05/20 [History] Past Medical History - Past Health History Medical/Surgical History: Denies Medical/Surgical History HEENT History: Reports: None Cardiovascular History: Reports: Afib, Automatic Implantable Cardioverter Defibrillators, CAD, Cardiomyopathy, Heart Failure, High Cholesterol, Hypertension, Pacemaker, Stents Respiratory History: Reports: COPD Gastrointestinal History: Reports: GERD Genitourinary History: Reports: Other (See Below) Other Genitourinary History: ED Musculoskeletal History: Reports: Amputation, Arthritis, Fracture, Osteoarthritis, RA, Other (See Below) Other Musculoskeletal History: broken ankle Neurological History: Reports: None, Neuropathy, Peripheral Psychiatric History: Reports: None Endocrine/Metabolic History: Reports: Diabetes, Type II, Obesity/BMI 30+, Vitamin D Deficiency Hematologic History: Reports: None Immunologic History: Reports: Immunosuppression Oncologic (Cancer) History: Reports: None Dermatologic History: Reports: Psoriasis Other Dermatologic History: PSORIATIC ARTHRITIS - Infectious Disease History Infectious Disease History: Reports: MRSA - Past Surgical History HEENT Surgical History: Reports: Cataract Surgery Cardiovascular Surgical History: Reports: AICD, Pacer, Vascular Surgery, Other (See Below) Other Cardiovascular Surgeries/Procedures: stent in left leg Respiratory Surgical History: Reports: None GI Surgical History: Reports: Colonoscopy Male Surgical History: Reports: None Endocrine Surgical History: Reports: Other (See Below) Neurological Surgical History: Reports: Lumbar Spine Musculoskeletal Surgical History: Reports: Amputation, Shoulder Surgery, Other (See Below) Other Musculoskeletal Surgeries/Procedures:: BELOW KNEE AMPUTATION LEFT. RIB SURGERY. RIGHT SECOND TOE AMPUTATION. RIGHT PARTIAL DISTAL FIRST TOE AMPUTATION Social & Family History - Family History Family Medical History: No Pertinent Family History - Tobacco Use Tobacco Use Status *Q: Unknown Ever Used Tobacco Second Hand Smoke Exposure: No - Caffeine Use Caffeine Use: Reports: None Caffeine Use Comment: 6 CUPS DAILY - Recreational Drug Use Recreational Drug Use: No - Living Situation & Occupation Living situation: Reports: , with Family Occupation: Disabled ED ROS GENERAL - Review of Systems Review Of Systems: See Below Constitutional: Denies: Fever, Chills HEENT: Reports: No Symptoms Respiratory: Reports: No Symptoms Cardiovascular: Reports: No Symptoms GI/Abdominal: Reports: No Symptoms : Reports: No Symptoms Musculoskeletal: Reports: Joint Pain (right knee) Skin: Reports: Wound (right buttocks) Neurological: Reports: No Symptoms ED EXAM, GENERAL - Physical Exam Exam: See Below Exam Limited By: No Limitations General Appearance: Alert, No Apparent Distress Head: Atraumatic, Normocephalic Respiratory/Chest: No Respiratory Distress, No Accessory Muscle Use Extremities: No Pedal Edema. No: Joint Swelling, Limited Range of Motion (able to bend his knee without complications), Increased Warmth, Redness Neurological: Alert, Oriented Psychiatric: Normal Affect, Normal Mood Skin Exam: Wound/Incision (1cm X .5cm pressure ulcer noted to right buttocks. No drainage noted. No surround erythema. Area dry. ) Course - Vital Signs Last Recorded V/S: Last Vital Signs Temp 98.1 F 11/09/20 20:45 Pulse 81 11/09/20 20:45 Resp 18 11/09/20 20:45 BP 139/71 11/09/20 20:45 Pulse Ox 99 11/09/20 20:45 Departure - Departure Time of Disposition: 21:26 Disposition: Home, Self-Care 01 Clinical Impression: Pressure ulcer of right buttock Qualifiers: Pressure injury stage: stage 2 Qualified Code(s): L89.312 - Pressure ulcer of right buttock, stage 2 Pain in right knee Qualifiers: Chronicity: acute Qualified Code(s): M25.561 - Pain in right knee - Discharge Information *PRESCRIPTION DRUG MONITORING PROGRAM REVIEWED*: No *COPY OF PRESCRIPTION DRUG MONITORING REPORT IN PATIENT SEGUNDO: No Instructions: Acute Knee Pain, Adult, [id number], Preventing Pressure Injuries Additional Instructions: 1) Recommend following up with primary provider 2) Discussed signs and symptoms to watch for post injection (increased warmth, redness, drainage, fever). 3) Discussed pressure ulcers and advise having this followed by primary as well to make sure heals, appropriate bandage applied 4) May take Celebrex (Celoxib), already home medication, as directed to help with knee pain 5) Elevate and ice the knee tonight, discussed steroidal flare reactions as well tonight 6) Follow up if any concerns. Sepsis Event Note (ED) - Evaluation Sepsis Screening Result: No Definite Risk - Focused Exam Vital Signs: Vital Signs Temp Pulse Resp BP Pulse Ox 11/09/20 20:45 98.1 F 81 18 139/71 99 - Problem List & Annotations (1) Pain in right knee SNOMED Code(s): 2549033103 Code(s): M25.561 - PAIN IN RIGHT KNEE Status: Acute Qualifiers: Chronicity: acute Qualified Code(s): M25.561 - Pain in right knee - Problem List Review Problem List Initiated/Reviewed/Updated: Yes - Assessment/Plan Plan: Jef overall appears to be doing well. Vital signs are stable, within normal limits. No fever. No sign of infection to right knee. Discussed pressure vs steroidal flare reaction status post injection. D/t pain on his way home, likely secondary to the injection/aspiration itself. Discussed anesthetic likely worn off. However, he is advised if any signs of infection to return for reevaluation, laboratory work, etc...
== END 2020-11-09 21:55 | disposition home or self-care (01) ==
LOC: CC.ED 20:44
DX: L89.312 Pressure ulcer of right buttock, stage 2 (principal); M25.561 Pain in right knee; J44.9 Chronic obstructive pulmonary disease, unspecified; I25.10 Atherosclerotic heart disease of native coronary artery without angina pectoris; I11.0 Hypertensive heart disease with heart failure; I50.9 Heart failure, unspecified; I48.91 Unspecified atrial fibrillation; E78.00 Pure hypercholesterolemia, unspecified; K21.9 Gastro-esophageal reflux disease without esophagitis; E11.42 Type 2 diabetes mellitus with diabetic polyneuropathy; E66.9 Obesity, unspecified; Z68.30 Body mass index [BMI] 30.0-30.9, adult; Z79.4 Long term (current) use of insulin; Z91.048 Other nonmedicinal substance allergy status; Z88.8 Allergy status to other drugs, medicaments and biological substances; Z79.82 Long term (current) use of aspirin; Z79.84 Long term (current) use of oral hypoglycemic drugs; Z95.810 Presence of automatic (implantable) cardiac defibrillator
CPT/HCPCS: 99283; 99284

== ENCOUNTER 2021-12-02 22:40 | Emergency (ER) | payer MEDICARE, MEDICAID ==
[2021-12-02 22:52] VITALS: BP 130/64; PULSE 93
[2021-12-02] MEDS: cefTRIAXone 1 GM Vial IM ONE (23:55)
[2021-12-02] MEDS: Lidocaine 1% 5 ML VIAL INJECT ONE (23:55)
== END 2021-12-03 00:06 | disposition home or self-care (01) ==
LOC: SUPCPDRO 22:40 → CC.ED 22:40
DX: N30.01 Acute cystitis with hematuria (principal); I11.0 Hypertensive heart disease with heart failure; I50.9 Heart failure, unspecified; I25.10 Atherosclerotic heart disease of native coronary artery without angina pectoris; J44.9 Chronic obstructive pulmonary disease, unspecified; E11.9 Type 2 diabetes mellitus without complications; F17.210 Nicotine dependence, cigarettes, uncomplicated; E66.9 Obesity, unspecified; Z68.26 Body mass index [BMI] 26.0-26.9, adult; Z88.8 Allergy status to other drugs, medicaments and biological substances; Z91.048 Other nonmedicinal substance allergy status; Z79.899 Other long term (current) drug therapy
CPT/HCPCS: 36415; 80053; 81001; 83605; 85025; 86140; 87086; 87088; 87186; 96372; 99283; 99284; J0696

== ENCOUNTER 2023-05-08 18:13 | Emergency (ER) | payer MEDICARE, MEDICAID ==
[2023-05-08 18:49] VITALS: BP 118/85; PULSE 98
[2023-05-08] MEDS: Albuterol 6.7 GM Inhaler INH ONE (19:15)
== END 2023-05-08 20:10 | disposition home or self-care (01) ==
LOC: CC.ED 18:13
DX: U07.1 COVID-19 (principal); I10 Essential (primary) hypertension; E78.00 Pure hypercholesterolemia, unspecified; I48.91 Unspecified atrial fibrillation; E11.9 Type 2 diabetes mellitus without complications; Z88.8 Allergy status to other drugs, medicaments and biological substances; Z91.048 Other nonmedicinal substance allergy status; Z79.899 Other long term (current) drug therapy; Z79.4 Long term (current) use of insulin; Z79.82 Long term (current) use of aspirin; Z79.84 Long term (current) use of oral hypoglycemic drugs
CPT/HCPCS: 71046; 87804; 87807; 99283; 99284; A9270-GY; U0002

== ENCOUNTER 2023-07-01 15:15 | Emergency (ER) | payer MEDICARE, MEDICAID ==
[2023-07-01 16:27] VITALS: BP 90/49; PULSE 98
[2023-07-01] MEDS: Ketorolac 30 MG/ML SDV IM ONE (16:51)
[2023-07-01] MEDS: Lidocaine 4% 1 each Patch TOP ONE ×2 (17:57→17:58)
[2023-07-01] MEDS: Cyclobenzaprine 10 MG Tab PO ONE (17:58)
[2023-07-01] MEDS: Take Home: Cyclobenzaprine 10 MG Tab, 4 Tab Pack PO ONE (17:58)
[2023-07-01] MEDS: Take Home: predniSONE 20 MG, 2 Tab Pack PO ONE (17:58)
[2023-07-01] MEDS: predniSONE 20 MG Tab PO ONE (17:59)
== END 2023-07-01 18:22 | disposition home or self-care (01) ==
LOC: CC.ED 15:15
DX: M62.838 Other muscle spasm (principal); L40.9 Psoriasis, unspecified; I10 Essential (primary) hypertension; E78.00 Pure hypercholesterolemia, unspecified; E11.9 Type 2 diabetes mellitus without complications; Z79.4 Long term (current) use of insulin; Z79.899 Other long term (current) drug therapy; Z79.82 Long term (current) use of aspirin; Z91.048 Other nonmedicinal substance allergy status; Z88.8 Allergy status to other drugs, medicaments and biological substances; Z79.85 Long-term (current) use of injectable non-insulin antidiabetic drugs
CPT/HCPCS: 71045; 71046; 72040; 73030-RT; 96372; 99283; 99284; A9270-GY; J1885; J7512

== ENCOUNTER 2023-10-02 23:32 | Emergency (ER) | payer MEDICARE, MEDICAID ==
[2023-10-02 23:35] VITALS: BP 112/65; PULSE 95
[2023-10-03 00:23] LABS: BASOPHILS ABSOLUTE AUTO 0.01 10^3/uL (0.00-0.50); BASOPHILS PERCENT AUTO 0.1 % (0-1); EOSINOPHILS PERCENT AUTO 1.1 % (0-6); HEMATOCRIT 31.9 % (42.0-52.0); HEMOGLOBIN 10.1 g/dL (14.0-18.0); IMMATURE GRAN ABSOLUTE AUTO 0.02 10^3/uL (0.00-0.49); IMMATURE GRAN PERCENT AUTO 0.2 % (0.0-4.9); LYMPHOCYTES ABSOLUTE AUTO 2.01 10^3/uL (0.60-5.00); LYMPHOCYTES PERCENT AUTO 21.2 % (24-44); MEAN CORPUSCULAR HEMOGLOBIN 27.2 pg (27.0-32.0); MEAN CORPUSCULAR HGB CONC 31.7 g/dL (32.0-36.0); MONOCYTES ABSOLUTE AUTO 0.66 10^3/uL (0.00-1.50); NEUTROPHILS ABSOLUTE AUTO 6.68 x10^3/uL (1.80-8.00); NEUTROPHILS PERCENT AUTO 70.4 % (41-71); PLATELET COUNT,PLT 341 10^3/uL (150-400); RED BLOOD CELL COUNT 3.71 x10^6/uL (4.50-6.00); WHITE BLOOD CELL COUNT,WBC 9.5 10^3/uL (4.0-11.0)
[2023-10-03 00:34] LABS: ALBUMIN 2.6 g/dL (3.4-5.0); BILIRUBIN TOTAL 0.7 mg/dL (0.0-1.0); C-REACTIVE PROTEIN 8.9 mg/dL (<=0.50); CALCIUM 9.1 mg/dL (8.4-10.1); CREATININE 0.8 mg/dL (0.7-1.3); EST CRCL DRUG DOSING (CG) 91.03 mL/min; POTASSIUM,K 3.7 mEq/L (3.5-5.0); PROTEIN TOTAL,TP 8.5 g/dL (6.4-8.2)
== END 2023-10-03 01:31 | disposition home or self-care (01) ==
LOC: CC.ED 23:32
DX: S16.1XXA Strain of muscle, fascia and tendon at neck level, initial encounter (principal); K59.01 Slow transit constipation; I10 Essential (primary) hypertension; E78.00 Pure hypercholesterolemia, unspecified; I48.91 Unspecified atrial fibrillation; E11.9 Type 2 diabetes mellitus without complications; Z95.0 Presence of cardiac pacemaker; Z89.611 Acquired absence of right leg above knee; Z79.899 Other long term (current) drug therapy; Z79.4 Long term (current) use of insulin; Z79.84 Long term (current) use of oral hypoglycemic drugs; Z91.048 Other nonmedicinal substance allergy status; Z88.8 Allergy status to other drugs, medicaments and biological substances; X58.XXXA Exposure to other specified factors, initial encounter
CPT/HCPCS: 36415; 74019; 80053; 85025; 86140; 99284